=== PATIENT | male | born 1960 | race Caucasian/White ===

== ENCOUNTER 2019-06-04 18:27 | Inpatient (IN) | payer MEDICARE, MEDICAID, SELFPAY | END 2019-06-13 13:33 | disposition home or self-care (01) | DRG 641 | PROVIDERS: Admitting Provider Internal Medicine; Visit Provider Internal Medicine | DX: E83.52 Hypercalcemia (principal); C79.51 Secondary malignant neoplasm of bone; C79.89 Secondary malignant neoplasm of other specified sites; E87.1 Hypo-osmolality and hyponatremia; C78.7 Secondary malignant neoplasm of liver and intrahepatic bile duct; E87.2 Acidosis; M84.68XA Pathological fracture in other disease, other site, initial encounter for fracture; G89.29 Other chronic pain; G47.33 Obstructive sleep apnea (adult) (pediatric); M06.9 Rheumatoid arthritis, unspecified; D64.9 Anemia, unspecified; I25.10 Atherosclerotic heart disease of native coronary artery without angina pectoris; E83.42 Hypomagnesemia; Z79.899 Other long term (current) drug therapy; Z87.891 Personal history of nicotine dependence; E87.6 Hypokalemia; N18.2 Chronic kidney disease, stage 2 (mild) ==

== ENCOUNTER → 2019-06-18 | Outpatient (CLI) | payer SELFPAY | PROVIDERS: Referring Provider Internal Medicine Critical Care Medicine; Visit Provider Internal Medicine Hematology & Oncology | DX: C34.11 Malignant neoplasm of upper lobe, right bronchus or lung (principal); C79.51 Secondary malignant neoplasm of bone; C78.7 Secondary malignant neoplasm of liver and intrahepatic bile duct; F17.210 Nicotine dependence, cigarettes, uncomplicated; Z86.39 Personal history of other endocrine, nutritional and metabolic disease | CPT/HCPCS: 99203 ==

== ENCOUNTER 2019-06-20 19:04 | Inpatient (IN) | payer MEDICARE, MEDICAID, SELFPAY ==
[2019-06-20 19:32] VITALS: BP 146/76; PULSE 95; RESP 16; TEMP 36.8; O2SAT 96; BMI 23.5
[2019-06-20 21:00] LABS: Basophils % 0.2 %; Eosinophils % 0.1 %; Hematocrit 40.3 % (42.0-52.0); Hemoglobin 13.6 g/dL (11.7-16.6); Lymphocytes # 1.6 10^3/uL (0.8-4.8); Lymphocytes % 11.1 %; Mean Corpuscular HGB Conc 33.7 g/dL (30.0-36.0); Mean Corpuscular Hemoglobin 32.5 pg (28.0-34.0); Mean Corpuscular Volume 96.4 fL (80-94); Mean Platelet Volume 10.6 fL (7.4-10.4); Monocytes % 7.1 %; Neutrophils # 11.4 10^3/uL (1.8-7.7); Neutrophils % 81.2 %; Nucleated Red Blood Cells % 0 %; Platelet Count 352 10^3/cmm (130-400); Red Blood Count 4.18 10^6/uL (4.1-5.3); Red Cell Distribution Width 15.1 % (12.1-15.1)
[2019-06-20 21:10] LABS: Add RBC Morph No
[2019-06-20 21:11] LABS: Alanine Aminotransferase 75 U/L (0-41); Albumin Level 3.9 g/dL (3.5-5.2); Alkaline Phosphatase 221 IU/L (40-130); Anion Gap 27.8 (5-19); Aspartate Amino Transferase 112 U/L (0-40); Blood Urea Nitrogen 18 mg/dL (6-20); Carbon Dioxide 20 mmol/L (22-29); Chloride 89 mmol/L (98-107); Globulin 5.5 g/dL (1.3-4.6); Glomerular Filtration Rate 139.4 mL/min (90-130); Glucose 88 mg/dL (74-109); Potassium 4.8 mmol/L (3.5-5.1); Sodium 132 mmol/L (136-145); Total Bilirubin 1.4 mg/dL (0.15-1.2); Total Protein 9.4 g/dL (6.6-8.7)
[2019-06-20 21:26] LABS: Calcium 14.6 mg/Dl (8.6-10.0)
--- NOTE | 2019-06-20 21:27 | XR_ITS ---
WS: [id number] CHEST XRAY TECHNIQUE: Portable chest. CLINICAL INFORMATION: admission COMPARISON: FINDINGS: Heart: Normal cardiac silhouette. Aortic calcification. Lungs: Chronic emphysematous changes. 3.7 x 5.2 cm right hilar mass suspicious for neoplasm. No new pulmonary infiltrates. 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 Suspected bony metastasis better seen on the recent CT. XR/XR chest 1V portable [id number] IMPRESSION: 1. Stable large right hilar mass measuring 5.2 cm most consistent with neoplas m. 2. No new pulmonary infiltrates.
--- NOTE | 2019-06-20 21:39 | ED_ITS ---
Entered by Lala Plascencia, acting as scribe for Jun 20, 2019 19:04 HPI - General Adult General: Chief complaint: General Medical Stated complaint: WEAK Time Seen by Provider: 06/20/19 21:36 Source: patient Mode of arrival: wheelchair Limitations: no limitations History of Present Illness: HPI narrative: 58 yo m came to the er with daighter with weakness. Pts daughter stated that he wants to be placed in the prison for hospice care. Pt has stage 4 carsanoma. complaint: Weak and wants to be placed in prison Onset (ago): day(s) Quality: aching Pain Consistency: constant Relieving factors: none Associated symptoms: Deny chest pain, dyspnea or rash Review of Systems General: Reports: 10 or more systems reviewed and unremarkable except in HPI and below Const: Denies: fever Eyes: Denies: change in vision ENMT: Denies: throat pain Card: Denies: chest pain Resp: Denies: shortness of breath GI: Denies: abdominal pain : Denies: flank pain Musc: Denies: neck pain Skin/Breast: Denies: rash Neuro: Reports: weakness in extremities Psych: Denies: anxiety Endo: Denies: excessive urination Gil/Lymph: Denies: easy bruising All/Imm: Denies: hives PFSH ED PFSH: Statuses (acute, chronic, etc) shown below reflect problem list status as previously entered and may not be historically accurate Medical History (Updated 06/21/19 @ 02:34 by Andrea Gustafson MD) Bone metastases (Acute) Fibrous dysplasia (monostotic), left forearm (Acute) Fracture of left foot (Acute) Hypercalcemia of malignancy (Acute) IV drug abuse (Acute) Skin graft disorder (Acute) Surgical History (Updated 06/21/19 @ 00:00 by Jannet Hollingsworth MD) H/O shoulder surgery (Acute) History of dental surgery (Acute) Family History (Updated 06/21/19 @ 00:00 by Jannet Hollingsworth MD) Denies family history of CAD (coronary artery disease) Bleeding disorder Cancer Social History Smoking and tobacco status: current every day smoker Quit status (tobacco): has quit using tobacco Year quit tobacco: 2019 Alcohol intake: former Current gender identity: Male Physical Exam Const: COMMON NORMALS: oriented x3 GENERAL APPEARANCE: disheveled and ill appearing HENMT: COMMON NORMALS: normocephalic and external nose normal HEAD & SCALP: normocephalic NOSE: external nose normal Eye: COMMON NORMALS: PERRL PUPIL: Yes PERRL Neck/C-Spine: COMMON NORMALS: full ROM and no lymphadenopathy Chest: COMMONS NORMALS: inspection of chest normal Resp: COMMON NORMALS: normal respiratory effort, no use of accessory muscles and clear to auscultation bilaterally AUSCULTATION: clear to auscultation bilaterally Cardio: COMMON NORMALS: regular rate and regular rhythm RATE: regular rate RHYTHM: regular rhythm GI: COMMON NORMALS: normal to inspection, nondistended, normoactive bowel sounds, soft to palpation, non-tender and no masses PALPATION: Yes soft Back/Pelvis: THORACIC SPINE/UPPER BACK: Yes normal to inspection Extremity: COMMON NORMALS: normal to inspection, full ROM and normal capillary refill Neuro: COMMON NORMALS: oriented x3 Psych: COMMON NORMALS: mental status grossly normal and cooperative Skin: COMMON NORMALS: no rashes or lesions noted GENERAL SKIN EXAM: no rashes or lesions noted Course Vital Signs: Vital signs: Vital Signs Temperature 97.9 F 06/21/19 02:14 Pulse Rate 103 H 06/21/19 02:14 Respiratory Rate 18 06/21/19 02:14 Blood Pressure 143/83 06/21/19 02:14 Pulse Oximetry 94 06/21/19 02:14 MDM - General Adult MDM Narrative: Medical decision making narrative: Patient presents here with generalized weakness would like to be placed in a prison on palliative care. Patient is no longer able to take care of himself. I spoke to hospitalist and will admit at this time. Lab Data: Labs: Lab Results 06/20/19 06/20/19 06/20/19 Range/Units 20:44 20:44 20:53 WBC 14.0 H (4.0-10.0) 10^3/ uL RBC 4.18 (4.1-5.3) 10^6/u L Hgb 13.6 (11.7-16.6) g/dL Hct 40.3 L (42.0-52.0) % MCV 96.4 H (80-94) fL MCH 32.5 (28.0-34.0) pg MCHC 33.7 (30.0-36.0) g/dL RDW 15.1 (12.1-15.1) % Plt Count 352 (130-400) 10^3/c mm MPV 10.6 H (7.4-10.4) fL Neut % (Auto) 81.2 % Lymph % (Auto) 11.1 % [place] % (Auto) 7.1 % Eos % (Auto) 0.1 % Baso % (Auto) 0.2 % Neut # (Auto) 11.4 H (1.8-7.7) 10^3/u L Lymph # (Auto) 1.6 (0.8-4.8) 10^3/u L [place] # (Auto) 1.0 H (0.2-0.9) 10^3/u L Eos # (Auto) 0.0 (0.0-0.8) 10^3/u L Baso # (Auto) 0.0 (0.0-0.1) 10^3/u L Nucleated RBC % (a uto) 0 % Nucleated RBCs # 0.0 /100WBC Sodium 132 L (136-145) mmol/L Potassium 4.8 (3.5-5.1) mmol/L Chloride 89 L (98-107) mmol/L Carbon Dioxide 20 L (22-29) mmol/L Anion Gap 27.8 H (5-19) BUN 18 (6-20) mg/dL Creatinine 0.6 L (0.7-1.2) mg/dL GFR Calculation 139.4 H (90-130) mL/min Glucose 88 (74-109) mg/dL Calcium 14.6 H* (8.6-10.0) mg/Dl Total Bilirubin 1.4 H (0.15-1.2) mg/dL AST 112 H (0-40) U/L ALT 75 H (0-41) U/L Alkaline Phosphata se 221 H (40-130) IU/L Total Protein 9.4 H (6.6-8.7) g/dL Albumin 3.9 (3.5-5.2) g/dL Globulin 5.5 H (1.3-4.6) g/dL Urine Color Yellow (Yellow) Urine Appearance Clear (CLEAR) Urine pH 5 (5-7) Ur Specific Gravit y 1.025 (1.005-1.030) Urine Protein Trace (Negative) Urine Glucose (UA) Norm (Normal) Urine Ketones 2+ H (Negative) Urine Occult Blood Neg (Negative) Urine Nitrate Negative (Negative) Urine Bilirubin Neg (Negative) Urine Urobilinogen 1 H (Negative) mg/dL Ur Leukocyte Jessie ase Negative (Negative) Urine RBC 0-4 H (0-2) /hpf Urine WBC None (0-5) /hpf Ur Squamous Epith Cells 0-4 H (0-5) Urine Bacteria Trace (NONE) Hyaline Casts 5-10 H Fine Granular Cast s 0-4 H /lpf Discharge Plan Discharge Patient Disposition: Admitted As Inpatient Admit Provider: Jannet Hollingsworth Clinical Impression: Weakness Squamous cell lung cancer Qualifiers: Laterality: unspecified laterality Qualified Code(s): C34.90 - Malignant neoplasm of unspecified part of unspecified bronchus or lung Condition: Stable Referrals: Tressa Astorga DO [Primary Care Provider] - Interventions: ED Discharge Assessment Last Done: 06/21/19 02:14 Discharge Date/Time: 06/21/19 02:17 Coding Level of Care Code ED Ssis Architect for Chg Fwd The documentation recorded by the Temo lewis Stephanie Lyn, accurately reflects the service I personally performed and the decisions made by Sj maria Korby, MD Jun 20, 2019 19:04
[2019-06-20 21:45] LABS: Bilirubin Urine Neg (Negative); Blood Urine Neg (Negative); Glucose Urine UA Norm (Normal); Ketones Urine 2+ (Negative); Leukocyte Esterase Urine Negative (Negative); Nitrate Urine Negative (Negative); Protein Urine Trace (Negative); Specific Gravity, Urine 1.025 (1.005-1.030); Urine Appearance Clear (CLEAR); Urine Color Yellow (Yellow); Urobilinogen Urine 1 mg/dL (Negative); pH Urine 5 (5-7)
[2019-06-20] MEDS: ondansetron 2 mg/ML SDV 2 mL 4 MG IVP (21:45)
[2019-06-20] MEDS: fentaNYL 50 mcg/mL INJ 2mL 100 MCG IVP (21:45)
[2019-06-20 21:46] LABS: Add Urine Microscopic? YES
[2019-06-20 22:19] VITALS: BP 149/79; PULSE 89; RESP 16; O2SAT 95
[2019-06-20 22:52] LABS: Fine Granular Casts Urine 0-4 /lpf
[2019-06-20 22:54] LABS: Add Urine Culture? No; Bacteria Urine TRACE; RBC Urine 0-4 /hpf (0-2); Squamous Epithelial Cell Urine 0-4 (0-5)
[2019-06-20 22:56] VITALS: RESP 20; O2SAT 94
[2019-06-20] MEDS: HYDROmorphone 1 mg/mL INJ 1 mL IVP (22:56)
--- NOTE | 2019-06-20 23:11 | PC.NURSE ---
Patient would like a pain shot. pain rating 7/10
--- NOTE | 2019-06-20 23:40 | PC.NURSE ---
CHARTED ON WRONG PT, CHARTED VITAL SIGNS AND DISCHARGE ON THIS PT IN ERROR. PT CONTINUES TO BE IN ER 3 AT THIS TIME.
--- NOTE | 2019-06-20 23:51 | P.HP_ITS ---
Providers/Chief Complaint Primary Care Provider: Tressa Astorga Chief Complaint: WEAK History of Present Illness Tapan Gonzalez is a 58 year old male who was admitted for management of hypercalcemia secondary to malignancy 1 week back, he saw psychiatrist and Dr. Hammer, he had decision-making capacity, Dr. 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 He was recently seen in ER few days back because he was in pain and he missed his PCP appointment and he did not have enough opioid coverage for his pain. Today patient presented because he is very dehydrated, and is agreeable to go to a long-term acute care because of his comorbid conditions. He has not received any chemo or radiotherapy, he has not followed up with any physicians since his discharge. Diagnostics in ER showed hypertension, afebrile, hypercalcemia Review of Systems Narrative: Patient looks extremely dehydrated, cachectic appearance Endorsing pain in his ribs and headache No pain in his eyes No throat pain No chest pain No shortness of breath Mild abdominal pain, denies constipation, last bowel movement was today Lower extremity pain with some tingling Depressed sad mood Denies fever, chills, hot flashes He is endorsing weight loss Not able to take care of himself anymore Medications/Allergies Allergies Allergy/AdvReac Type Severity Reaction Status Date / Time No Known Allergies Allergy Unverified 06/18/19 12:38 PFSH Acute PFSH: Statuses (acute, chronic, etc) shown below reflect problem list status as previously entered and may not be historically accurate Medical History (Updated 06/21/19 @ 00:00 by Jannet Hollingsworth MD) Bone metastases (Acute) Fibrous dysplasia (monostotic), left forearm (Acute) Fracture of left foot (Acute) Hypercalcemia of malignancy (Acute) IV drug abuse (Acute) Skin graft disorder (Acute) Surgical History (Updated 06/21/19 @ 00:00 by Jannet Hollingsworth MD) H/O shoulder surgery (Acute) History of dental surgery (Acute) Family History (Updated 06/21/19 @ 00:00 by Jannet Hollingsworth MD) Denies family history of CAD (coronary artery disease) Bleeding disorder Cancer Social History Smoking and tobacco status: current every day smoker Quit status (tobacco): has quit using tobacco Year quit tobacco: 2019 Alcohol intake: former Current gender identity: Male Vitals/I&O/Wt Last Vital Signs Temp 98.2 F 06/20/19 19:32 Pulse 89 06/20/19 22:19 Resp 20 H 06/20/19 22:56 BP 149/79 06/20/19 22:19 Pulse Ox 94 06/20/19 22:56 Weight last 48 hrs Weight 68.039 kg Physical Exam 2 Narrative: EXAM NARRATIVE: Cachectic appearance lethargic male Patient is awake alert oriented x3 GCS 15, his mentation is fluctuant though with some nonpurposeful movements as well Abdomen soft, nontender bowel sounds present S1-S2 no murmur appreciated Lungs are clear to auscultation with decreased airflow no adventitious sounds He has pain around his rib cage, pleuritic chest pain positive No ischemic or gangrenous extremities He has skin grafts which does not look infected Lethargic depressed mood, no active suicidal or homicidal ideation Bone pain, rib pain, back pain positive A&P Assessment and plan (1) Stage IV squamous cell carcinoma of lung: Status: Acute Code(s): C34.90 - Malignant neoplasm of unspecified part of unspecified bronchus or lung (2) Hypercalcemia of malignancy: Status: Acute Code(s): E83.52 - Hypercalcemia (3) IV drug abuse: Status: Acute Code(s): F19.10 - Other psychoactive substance abuse, uncomplicated (4) Bone metastases: Status: Acute Code(s): C79.51 - Secondary malignant neoplasm of bone (5) Squamous cell lung cancer: Status: Acute Code(s): C34.90 - Malignant neoplasm of unspecified part of unspecified bronchus or lung Stage IV lung cancer with metastases involving his skull and ribs Dr. Hammer recommended palliative chemoradiotherapy which patient has not been able to follow-up for his appointment, he has not even set up appointment with PCP which was set up last time He was living with his cousin Stevenson, he is not able to take care of him because he is getting weaker Patient is in agreement to go to long-term acute care still refusing palliative/hospice care Hypercalcemia of malignancy: I will start him on normal saline IV fluids last time he responded very well to fluid resuscitation Bone metastases: Patient is getting opioids, he is not constipated, I believe he has high tolerance because of polysubstance abuse history Patient has capacity to make decision, DNR/DNI Attestations Medical Necessity Statement*: Anticipating his discharge in less than 48 hours to long-term acute care, he would be a good candidate for palliative approach because of his stage IV cancer Time Spent in Patient Care: Greater than 35 minutes 45 Coding Level of Care Code Acute Prestidigitator for Stephanie Gastelum Diagnoses Stage IV squamous cell carcinoma of lung C34.90 Hypercalcemia of malignancy E83.52 IV drug abuse F19.10 Bone metastases C79.51 Squamous cell lung cancer C34.90
[2019-06-21] VITALS (8 sets, daily range): BP systolic 113–156; BP diastolic 52–83; PULSE 64–103; RESP 16–24; TEMP 36.3–37.2; O2SAT 94–96
[2019-06-21] MEDS: sodium chloride 0.9% 1,000 ML 999 ML IV (01:21)
[2019-06-21] MEDS: sodium chloride 0.9% 1,000 ML 100 ML IV ×2 (01:22→13:25)
[2019-06-21] MEDS: morphine 4 mg/mL SDV 1 mL IVP (01:22)
[2019-06-21] MEDS: cephALEXin 500 mg Capsule PO (01:55)
[2019-06-21] MEDS: enoxaparin 40 mg/0.4 mL Syringe SUBCUT (03:15)
[2019-06-21 06:05] LABS: Anion Gap 26.5 (5-19); Blood Urea Nitrogen 19 mg/dL (6-20); Calcium 13.3 mg/Dl (8.6-10.0); Carbon Dioxide 20 mmol/L (22-29); Chloride 91 mmol/L (98-107); Glomerular Filtration Rate 139.4 mL/min (90-130); Glucose 90 mg/dL (74-109); Potassium 4.5 mmol/L (3.5-5.1); Sodium 133 mmol/L (136-145)
[2019-06-21] MEDS: morphine ER (12 HR) 15 mg Tablet PO ×2 (08:29→17:34)
--- NOTE | 2019-06-21 17:01 | P.PN_ITS ---
Subjective Subjective: Interval history: He is very weak. Reports pain in his chest and back. Denies pain elsewhere. Denies shortness of breath. Reports he has been this weak for about 4 days. Denies constipation. Daughter is visiting with him at bedside. Vitals/I&O/Wt Last Vital Signs Temp 99.0 F 06/21/19 15:14 Pulse 93 06/21/19 15:14 Resp 18 06/21/19 15:14 BP 123/66 06/21/19 15:14 Pulse Ox 94 06/21/19 15:14 06/21/19 06/21/19 06/21/19 06:59 14:59 22:59 Intake Total 1663.333 / 2526.688 4502.667 / 1176.667 Output Total 700 / 700 Balance 1663.333 / 1663.333 476.667 / 476.667 Weight last 48 hrs Weight 65.363 kg Weight 66.043 kg Weight 68.039 kg Physical Exam Const: COMMON NORMALS: no apparent distress and oriented x3 GENERAL APPEARANCE: lethargic and limp (Generally very weak.) ORIENTATION/CONSCIOUSNESS: Yes lethargic HENMT: COMMON NORMALS: oropharynx normal Neck/C-Spine: COMMON NORMALS: no JVD Resp: COMMON NORMALS: normal respiratory effort and clear to auscultation bilaterally AUSCULTATION: clear to auscultation bilaterally Cardio: COMMON NORMALS: no JVD, regular rhythm, S1 normal heart sound, S2 normal heart sound and no murmurs RHYTHM: regular rhythm HEART SOUNDS: S1 normal and S2 normal GI: COMMON NORMALS: normal to inspection, nondistended, normoactive bowel soun ds, soft to palpation and non-tender PALPATION: Yes soft Extremity: COMMON NORMALS: no joint enlargement and no pedal edema Neuro: COMMON NORMALS: oriented x3 and moves all extremities SENSORIUM/ORIENTATION: Yes lethargic Skin: COMMON NORMALS: no rashes or lesions noted GENERAL SKIN EXAM: no rashes or lesions noted A&P Assessment and plan (1) Hypercalcemia of malignancy: Calcium 13.3, albumin 3.9. This is after IV hydration. He appears to be symptomatic with generalized weakness, perhaps mildly altered mentation. Denies abdominal pain, constipation. Has been having bone pain, although this may be secondary to bone metastasis as well. At this time we will continue IV hydration, will start him on calcitonin, will give him a dose of pamidronate. Reassess calcium. Status: Acute Code(s): E83.52 - Hypercalcemia (2) Stage IV squamous cell carcinoma of lung: We have had a long discussion with his daughter at bedside and another daughter who called in on speaker phone. Patient has been present, and intermittently awake, although overall rather weak to participate. We discussed regarding his current cancer stage. It appears stated not have a good understanding with regards to the goals of palliative radiation therapy. Discussed with them that most likely this appears has been done to relieve his symptoms of pain from the bony metastases. Discussed with him that appears his functional capacity has not allowed conventional chemotherapy. We discussed that molecular marker is being currently assessed by his cancer doctor to determine her candidacy for immunotherapy. Cleared up for them that this would not be a curative treatment. We discussed that this potentially could slow down his disease, perhaps leading to some response/reversal, although the extent is difficult to say. I referred them to consult with his oncologist regarding further questions as to the potential benefits and adverse effects of immunotherapy. Given his overall deconditioning we will try to get him placed to SNF for rehabilitation and additional care. Status: Acute Code(s): C34.90 - Malignant neoplasm of unspecified part of unspecified bronchus or lung (3) Bone metastases: With hypercalcemia. Would benefit from continuation of bisphosphonate after discharge. Status: Acute Code(s): C79.51 - Secondary malignant neoplasm of bone (4) Squamous cell lung cancer: Status: Acute Qualifiers: Laterality: unspecified laterality Qualified Code(s): C34.90 - Malignant neoplasm of unspecified part of unspecified bronchus or lung Code(s): C34.90 - Malignant neoplasm of unspecified part of unspecified bronchus or lung (5) IV drug abuse: History of substance abuse. Status: Acute Code(s): F19.10 - Other psychoactive substance abuse, uncomplicated Attestations Medical Necessity Statement*: Requiring admission of over 2 midnights for assessment management of severe hypercalcemia associated with malignancy and metastatic disease. Coding Level of Care Code Acute Polisher And Sander for [facility] Fwd Diagnoses Hypercalcemia of malignancy E83.52 Stage IV squamous cell carcinoma of lung C34.90 Bone metastases C79.51 Squamous cell lung cancer C34.90 Laterality: unspecified laterality IV drug abuse F19.10 Meds Home Medications and Allergies Home Medications Medication Instructions Recorded Confirmed Type No Known Home Medications 06/18/19 06/20/19 History Allergies Allergy/AdvReac Type Severity Reaction Status Date / Time No Known Allergies Allergy Verified 06/21/19 02:59 Current Medications Current Medications Generic Name Dose Route Start Last Admin Trade Name Freq PRN Reason Stop Dose Admin Enoxaparin Sodium 40 mg 06/21/19 02:00 06/21/19 03:15 Lovenox SUBCUT 40 mg Q24H ELIZABETH Administration Sodium Chloride 1,000 mls @ 100 mls/hr 06/21/19 00:45 06/21/19 13:25 Sodium Chloride 0.9% IV 100 mls/hr .Q10H ELIZABETH Administration Morphine Sulfate 15 mg 06/21/19 09:00 06/21/19 08:29 Ms Contin PO 15 mg BID ELIZABETH Administration Senna/Docusate Sodium 1 tab 06/21/19 09:00 06/21/19 08:30 Senna-S PO Not Given BID ELIZABETH
[2019-06-21] MEDS: calcitonin,salmon 200 unit/mL SDV 2mL 250 UNIT SUBCUT (17:42)
--- NOTE | 2019-06-21 20:38 | NUR.SHIFT ---
Shift Assessment done by Candida ROLAND was reviewed by this RN
[2019-06-22] VITALS (10 sets, daily range): BP systolic 114–128; BP diastolic 62–74; PULSE 86–101; RESP 16–24; TEMP 36.3–37.1; O2SAT 93–95
[2019-06-22] MEDS: sodium chloride 0.9% 1,000 ML 100 ML IV ×2 (00:35→16:38)
[2019-06-22] MEDS: enoxaparin 40 mg/0.4 mL Syringe SUBCUT (01:32)
[2019-06-22] MEDS: morphine IR 15 mg Tablet 30 MG PO ×3 (01:44→22:35)
[2019-06-22 05:48] LABS: Alanine Aminotransferase 56 U/L (0-41); Albumin Level 3.4 g/dL (3.5-5.2); Alkaline Phosphatase 171 IU/L (40-130); Anion Gap 23.3 (5-19); Blood Urea Nitrogen 10 mg/dL (6-20); Calcium 11.7 mg/Dl (8.6-10.0); Carbon Dioxide 16 mmol/L (22-29); Chloride 98 mmol/L (98-107); Globulin 3.7 g/dL (1.3-4.6); Glomerular Filtration Rate 139.4 mL/min (90-130); Glucose 86 mg/dL (74-109); Potassium 4.3 mmol/L (3.5-5.1); Sodium 133 mmol/L (136-145); Total Bilirubin 0.7 mg/dL (0.15-1.2); Total Protein 7.1 g/dL (6.6-8.7)
[2019-06-22] MEDS: calcitonin,salmon 200 unit/mL SDV 2mL 250 UNIT SUBCUT ×2 (05:48→19:27)
[2019-06-22 06:28] LABS: Aspartate Amino Transferase 81 U/L (0-40)
[2019-06-22 07:33] LABS: Basophils % 0.1 %; Hemoglobin 11.7 g/dL (11.7-16.6); Lymphocytes # 1.7 10^3/uL (0.8-4.8); Lymphocytes % 18.9 %; Mean Corpuscular HGB Conc 31.6 g/dL (30.0-36.0); Mean Corpuscular Hemoglobin 32.2 pg (28.0-34.0); Mean Corpuscular Volume 101.9 fL (80-94); Mean Platelet Volume 10.6 fL (7.4-10.4); Monocytes # 0.8 10^3/uL (0.2-0.9); Monocytes % 8.5 %; Neutrophils # 6.4 10^3/uL (1.8-7.7); Neutrophils % 72.1 %; Nucleated Red Blood Cells % 0 %; Platelet Count 285 10^3/cmm (130-400); Red Blood Count 3.63 10^6/uL (4.1-5.3); Red Cell Distribution Width 15.5 % (12.1-15.1); White Blood Count 8.9 10^3/uL (4.0-10.0)
[2019-06-22] MEDS: morphine ER (12 HR) 15 mg Tablet PO ×2 (09:22→19:13)
--- NOTE | 2019-06-22 12:51 | PC.CHAP ---
Pastoral Care Encounter/Spiritual Assessment Type of Contact [] Declined medicaid eligibility specialist visit [] Patient/Family/Request visit [] Outpatient visit [] Follow-up visit [] Physician referral [] Code/Alert [] Routine visit [] Staff referral [] Actively dying [] Patient sleeping [] Family support [] [] Out of room [] Palliative care [] [] Receiving care in room [] Pre-surgical visit [] Trauma [] Long length of stay [] ICU visit [] Other: Relational/Emotional Strength [x] Patient feels connected with others/family/visitors/staff [] Distress [] Loneliness/isolation [] Abandonment Spirituality of Patient [] Person of [place] [] Attends Hindu of their [place] [] Believes in Prayer [] Reads Bible or Yarsanism materials [] There are Spiritual issues to be addressed Wreath Maker Interventions [] Prayer [] Active listening [] Non-anxious presence [] Spiritual/emotional support [] Crisis/trauma care [] Spiritual counseling [] Bereavement support [] Provided bereavement packet [] Provided Bible/devotional materials [] Provided toy/stuffed animal, coloring book to patient or family member [] Completed spiritual assessment [] Provided Communion [] Anointing/[place] [] Salvation [] Other: Impact on Illness or Injury [] Angry [] Fearful [] Anxious [] Often cries [] Exhaustion [] Unable to work [] Unable to attend sikh [] Unable to walk/stand [] Unable to read [] Unable to drive [] Unable to eat/drink [] Unable to sleep [] Unable to be with family [] Other: Summary Patient declined visit; Reny Sanchez Time spent with patient 2-Minutes
--- NOTE | 2019-06-22 13:12 | PC.PT ---
PT note; patient demonstrated safely independent with transfers and ambulation with use of front wheel walker, during PT evaluation, no further visits planned at this time, no PT treatment indicated.
--- NOTE | 2019-06-22 18:57 | PM.PN ---
Subjective Subjective: Interval history: Today he reports he is feeling somewhat better. Currently denies significant pain or discomfort. Vitals/I&O/Wt Last Vital Signs Temp 98.1 F 06/22/19 16:00 Pulse 86 06/22/19 16:00 Resp 18 06/22/19 16:00 BP 123/65 06/22/19 16:00 Pulse Ox 95 06/22/19 16:00 06/22/19 06/22/19 06/22/19 06:59 14:59 22:59 Intake Total 1000 / 2616.667 2080 / 2080 600 / 2680 Output Total 825 / 2475 700 / 700 Balance 175 / 035.967 6110 / 1380 600 / 1980 Weight last 48 hrs Weight 66.043 kg Weight 65.363 kg Weight 66.043 kg Weight 68.039 kg Physical Exam Const: COMMON NORMALS: no apparent distress and oriented x3 GENERAL APPEARANCE: lethargic (Somewhat more awake today, appears slightly stronger) and limp (Generally very weak.) ORIENTATION/CONSCIOUSNESS: Yes lethargic (Somewhat more awake today, appears slightly stronger) HENMT: COMMON NORMALS: oropharynx normal Neck/C-Spine: COMMON NORMALS: no JVD Resp: COMMON NORMALS: normal respiratory effort and clear to auscultation bilaterally AUSCULTATION: clear to auscultation bilaterally Cardio: COMMON NORMALS: no JVD, regular rhythm, S1 normal heart sound, S2 normal heart sound and no murmurs RHYTHM: regular rhythm HEART SOUNDS: S1 normal and S2 normal GI: COMMON NORMALS: normal to inspection, nondistended, normoactive bowel sounds, soft to palpation and non-tender PALPATION: Yes soft Extremity: COMMON NORMALS: no joint enlargement and no pedal edema Neuro: COMMON NORMALS: oriented x3 and moves all extremities SENSORIUM/ORIENTATION: Yes lethargic (Somewhat more awake today, appears slightly stronger) Skin: COMMON NORMALS: no rashes or lesions noted GENERAL SKIN EXAM: no rashes or lesions noted A&P Assessment and plan (1) Hypercalcemia of malignancy: Calcium improving. He is mildly more awake, mildly stronger today. Continue IV hydration. Calcitonin. Received pamidronate. Status: Acute Code(s): E83.52 - Hypercalcemia (2) Stage IV squamous cell carcinoma of lung: Discussed again with the patient and his daughter at bedside. He is given things a good amount of thought, and has decided that he would like to try to hang on if possible. He states that he would like to think about things further, although preliminarily would be willing to try immunotherapy if it were to give him some more time. Pending molecular studies. This will need to be arranged by oncology. With generalized deconditioning, pending placement to SNF for rehabilitation. Status: Acute Code(s): C34.90 - Malignant neoplasm of unspecified part of unspecified bronchus or lung (3) Bone metastases: With hypercalcemia. Would benefit from continuation of bisphosphonate after discharge. Status: Acute Code(s): C79.51 - Secondary malignant neoplasm of bone (4) Squamous cell lung cancer: Status: Acute Qualifiers: Laterality: unspecified laterality Qualified Code(s): C34.90 - Malignant neoplasm of unspecified part of unspecified bronchus or lung Code(s): C34.90 - Malignant neoplasm of unspecified part of unspecified bronchus or lung (5) IV drug abuse: History of substance abuse. Reports has had no substance abuse in the last 5 to 6 years. Status: Acute Code(s): F19.10 - Other psychoactive substance abuse, uncomplicated Attestations Medical Necessity Statement*: Continue admission for assessment management of severe symptomatic hypercalcemia secondary to malignancy. Disposition planning. Coding Level of Care Code Acute Tele Marketing Executive for Stephanie Gastelum Diagnoses Hypercalcemia of malignancy E83.52 Stage IV squamous cell carcinoma of lung C34.90 Bone metastases C79.51 Squamous cell lung cancer C34.90 Laterality: unspecified laterality IV drug abuse F19.10
[2019-06-23] MEDS: enoxaparin 40 mg/0.4 mL Syringe SUBCUT (01:37)
[2019-06-23] MEDS: sodium chloride 0.9% 1,000 ML 100 ML IV ×2 (02:49→15:04)
[2019-06-23 04:00] VITALS: BP 127/70; PULSE 94; RESP 20; TEMP 37.1; O2SAT 94
[2019-06-23 05:53] LABS: Basophils % 0.1 %; Hematocrit 35.4 % (42.0-52.0); Hemoglobin 11.7 g/dL (11.7-16.6); Lymphocytes # 1.3 10^3/uL (0.8-4.8); Lymphocytes % 19.1 %; Mean Corpuscular HGB Conc 33.1 g/dL (30.0-36.0); Mean Corpuscular Hemoglobin 32.2 pg (28.0-34.0); Mean Corpuscular Volume 97.5 fL (80-94); Mean Platelet Volume 10.6 fL (7.4-10.4); Monocytes # 0.5 10^3/uL (0.2-0.9); Monocytes % 7.5 %; Neutrophils # 4.9 10^3/uL (1.8-7.7); Neutrophils % 72.9 %; Nucleated Red Blood Cells % 0 %; Platelet Count 268 10^3/cmm (130-400); Red Blood Count 3.63 10^6/uL (4.1-5.3); Red Cell Distribution Width 14.9 % (12.1-15.1); White Blood Count 6.7 10^3/uL (4.0-10.0)
[2019-06-23 06:20] LABS: Alanine Aminotransferase 50 U/L (0-41); Albumin Level 3.7 g/dL (3.5-5.2); Alkaline Phosphatase 158 IU/L (40-130); Aspartate Amino Transferase 70 U/L (0-40); Blood Urea Nitrogen 10 mg/dL (6-20); Calcium 11.3 mg/Dl (8.6-10.0); Carbon Dioxide 20 mmol/L (22-29); Chloride 93 mmol/L (98-107); Globulin 3.4 g/dL (1.3-4.6); Glomerular Filtration Rate 222.5 mL/min (90-130); Glucose 72 mg/dL (74-109); Sodium 131 mmol/L (136-145); Total Bilirubin 0.8 mg/dL (0.15-1.2); Total Protein 7.1 g/dL (6.6-8.7)
[2019-06-23] MEDS: calcitonin,salmon 200 unit/mL SDV 2mL 250 UNIT SUBCUT ×2 (06:30→17:11)
[2019-06-23 07:49] VITALS: BP 121/67; PULSE 94; RESP 16; TEMP 37.1; O2SAT 93
[2019-06-23] MEDS: sennosides-docusate Tablet 1 TAB PO (08:33)
[2019-06-23] MEDS: morphine ER (12 HR) 15 mg Tablet PO ×2 (08:37→17:04)
[2019-06-23 11:24] VITALS: BP 127/65; PULSE 88; RESP 16; TEMP 36.4; O2SAT 95
--- NOTE | 2019-06-23 14:15 | P.PN_ITS ---
Subjective Subjective: Interval history: Overall feeling somewhat better. Today denies any changes, but does complain of pain in the left lower chest. This is worse with movement, palpation or deep inspiration. He is feeling hungry and looking forward to his lunch. Vitals/I&O/Wt Last Vital Signs Temp 97.5 F L 06/23/19 11:24 Pulse 88 06/23/19 11:24 Resp 16 06/23/19 11:24 BP 127/65 06/23/19 11:24 Pulse Ox 95 06/23/19 11:24 06/22/19 06/23/19 06/23/19 22:59 06:59 14:59 Intake Total 1003.333 / 3083.333 846.667 / 3930.000 120 / 120 Output Total 525 / 1225 450 / 1675 200 / 200 Balance 478.333 / 1858.333 396.667 / 2255.000 -80 / -80 Weight last 48 hrs Weight 66.043 kg Physical Exam Const: COMMON NORMALS: no apparent distress and oriented x3 GENERAL APPEARANCE: frail appearing and limp (Generally very weak.) HENMT: COMMON NORMALS: oropharynx normal Neck/C-Spine: COMMON NORMALS: no JVD Resp: COMMON NORMALS: normal respiratory effort and clear to auscultation bilaterally AUSCULTATION: clear to auscultation bilaterally Cardio: COMMON NORMALS: no JVD, regular rhythm, S1 normal heart sound, S2 normal heart sound and no murmurs RHYTHM: regular rhythm HEART SOUNDS: S1 normal and S2 normal GI: COMMON NORMALS: normal to inspection, nondistended, normoactive bowel sounds, soft to palpation and non-tender PALPATION: Yes soft Extremity: COMMON NORMALS: no joint enlargement and no pedal edema Neuro: COMMON NORMALS: oriented x3 and moves all extremities Skin: COMMON NORMALS: no rashes or lesions noted GENERAL SKIN EXAM: no rashes or lesions noted A&P Assessment and plan (1) Hypercalcemia of malignancy: Calcium with gradual improvement, today down to 11.3. He is mildly more awake, mildly stronger today. Continue IV hydration. Calcitonin. Received pamidronate. Status: Acute Code(s): E83.52 - Hypercalcemia (2) Stage IV squamous cell carcinoma of lung: Pending molecular studies. He will be discussing immunotherapy with his oncologist once results are available. This will need to be arranged by oncology. With left lower chest pain, worse with movement, inspiration and palpation. Will request for lidocaine patch. With generalized deconditioning, pending placement to SNF for rehabilitation. Status: Acute Code(s): C34.90 - Malignant neoplasm of unspecified part of unspecified bronchus or lung (3) Bone metastases: With hypercalcemia. Would benefit from continuation of bisphosphonate after discharge. Status: Acute Code(s): C79.51 - Secondary malignant neoplasm of bone (4) Squamous cell lung cancer: Status: Acute Qualifiers: Laterality: unspecified laterality Qualified Code(s): C34.90 - Malignant neoplasm of unspecified part of unspecified bronchus or lung Code(s): C34.90 - Malignant neoplasm of unspecified part of unspecified bronchus or lung (5) IV drug abuse: History of substance abuse. Reports has had no substance abuse in the last 5 to 6 years. Status: Acute Code(s): F19.10 - Other psychoactive substance abuse, uncomplicated Attestations Medical Necessity Statement*: Continue admission for assessment and management of hypercalcemia associated with malignancy, disposition arrangements. Coding Level of Care Code Acute Real Estate Operations Manager for [facility] Fwd Diagnoses Hypercalcemia of malignancy E83.52 Stage IV squamous cell carcinoma of lung C34.90 Bone metastases C79.51 Squamous cell lung cancer C34.90 Laterality: unspecified laterality IV drug abuse F19.10
[2019-06-23 15:45] VITALS: BP 109/63; PULSE 89; RESP 16; TEMP 36.6; O2SAT 96
[2019-06-23 19:43] VITALS: BP 124/65; PULSE 92; RESP 18; TEMP 36.9; O2SAT 94
[2019-06-23 20:04] LABS: Hepatitis A Antibody IgM. Non-Reactive (Nonreactive); Hepatitis B Core IgM Non-Reactive (Nonreactive); Hepatitis B Surface Antigen. Non-Reactive (Nonreactive); Hepatitis C Virus Antibody Reactive (Nonreactive)
[2019-06-23] MEDS: lidocaine 5% Patch 1 PATCH TOPICAL (21:24)
[2019-06-23 21:25] VITALS: RESP 20
[2019-06-23] MEDS: morphine IR 15 mg Tablet 30 MG PO (21:25)
[2019-06-24] VITALS (9 sets, daily range): BP systolic 109–132; BP diastolic 56–73; PULSE 79–99; RESP 17–22; TEMP 36.5–37.1; O2SAT 92–95
[2019-06-24] MEDS: enoxaparin 40 mg/0.4 mL Syringe SUBCUT (01:11)
[2019-06-24] MEDS: sodium chloride 0.9% 1,000 ML 100 ML IV ×2 (01:11→18:40)
[2019-06-24] MEDS: morphine IR 15 mg Tablet 30 MG PO ×2 (01:12→05:47)
[2019-06-24] MEDS: calcitonin,salmon 200 unit/mL SDV 2mL 250 UNIT SUBCUT ×2 (05:34→18:54)
[2019-06-24 05:49] LABS: Basophils % 0.1 %; Eosinophils % 0.1 %; Hematocrit 33.4 % (42.0-52.0); Hemoglobin 11.2 g/dL (11.7-16.6); Lymphocytes # 1.1 10^3/uL (0.8-4.8); Lymphocytes % 15.4 %; Mean Corpuscular HGB Conc 33.5 g/dL (30.0-36.0); Mean Corpuscular Hemoglobin 32.5 pg (28.0-34.0); Mean Corpuscular Volume 96.8 fL (80-94); Mean Platelet Volume 10.3 fL (7.4-10.4); Monocytes # 0.7 10^3/uL (0.2-0.9); Monocytes % 10.3 %; Neutrophils # 5.1 10^3/uL (1.8-7.7); Neutrophils % 73.7 %; Nucleated Red Blood Cells % 0 %; Platelet Count 257 10^3/cmm (130-400); Red Blood Count 3.45 10^6/uL (4.1-5.3); White Blood Count 6.9 10^3/uL (4.0-10.0)
[2019-06-24 06:04] LABS: Alanine Aminotransferase 46 U/L (0-41); Albumin Level 3.2 g/dL (3.5-5.2); Alkaline Phosphatase 159 IU/L (40-130); Anion Gap 18.6 (5-19); Aspartate Amino Transferase 81 U/L (0-40); Blood Urea Nitrogen 9 mg/dL (6-20); Calcium 11.2 mg/Dl (8.6-10.0); Carbon Dioxide 24 mmol/L (22-29); Chloride 94 mmol/L (98-107); Globulin 4.3 g/dL (1.3-4.6); Glomerular Filtration Rate 222.5 mL/min (90-130); Glucose 80 mg/dL (74-109); Potassium 3.6 mmol/L (3.5-5.1); Sodium 133 mmol/L (136-145); Total Bilirubin 0.6 mg/dL (0.15-1.2); Total Protein 7.5 g/dL (6.6-8.7)
--- NOTE | 2019-06-24 09:47 | PC.SOCIAL ---
Pg 2 IMM Explained to pt Pg 2 IMM. Pt verbally understands & signed. Provided a copy to pt & left on bedside table. Signed, dated, & timed, then placed in chart.
[2019-06-24] MEDS: morphine ER (12 HR) 15 mg Tablet PO ×2 (10:29→18:41)
--- NOTE | 2019-06-24 14:37 | P.PN_ITS ---
Subjective Subjective: Interval history: Reports pain in the left side of her chest is better with lidocaine patch. Today having mild discomfort in the right upper chest. Had an episode of vomiting overnight. Per discussion with RN last night was visited by several friends who were insistent on taking him outside to smoke. They were reportedly informed that this was not possible. Vitals/I&O/Wt Last Vital Signs Temp 98.0 F 06/24/19 11:03 Pulse 84 06/24/19 11:03 Resp 22 H 06/24/19 11:03 BP 132/73 06/24/19 11:03 Pulse Ox 94 06/24/19 11:03 06/23/19 06/24/19 06/24/19 22:59 06:59 14:59 Intake Total 1000 / 2120 Output Total 1075 / 1275 900 / 2175 200 / 200 Balance -1075 / -155 100 / -55 -200 / -200 Weight last 48 hrs Weight 65.771 kg Physical Exam Const: COMMON NORMALS: no apparent distress and oriented x3 GENERAL APPEARANCE: frail appearing and limp (Generally very weak.) HENMT: COMMON NORMALS: oropharynx normal Neck/C-Spine: COMMON NORMALS: no JVD Resp: COMMON NORMALS: normal respiratory effort and clear to auscultation bilaterally AUSCULTATION: clear to auscultation bilaterally Cardio: COMMON NORMALS: no JVD, regular rhythm, S1 normal heart sound, S2 normal heart sound and no murmurs RHYTHM: regular rhythm HEART SOUNDS: S1 normal and S2 normal GI: COMMON NORMALS: normal to inspection, nondistended, normoactive bowel sounds, soft to palpation and non-tender PALPATION: Yes soft Extremity: COMMON NORMALS: no joint enlargement and no pedal edema Neuro: COMMON NORMALS: oriented x3 and moves all extremities Skin: COMMON NORMALS: no rashes or lesions noted GENERAL SKIN EXAM: no rashes or lesions noted Data Micro: Micro: Microbiology 06/23/19 19:48 Chlamydia trachoma tis (RACHELL) - Final Urine Random Neisseria gonorrho eae (RACHELL) - Final A&P Assessment and plan (1) Hypercalcemia of malignancy: Calcium with gradual improvement, although appears plateaued around 11. Pamidronate should start working. It appears perhaps effective calcitonin is wearing off. If no further improvement would discontinue calcitonin tomorrow. Continue bisphosphonates through oncology, likely zoledronic acid. He is mildly more awake, mildly stronger. Continue IV hydration. Calcitonin today. Received pamidronate. Status: Acute Code(s): E83.52 - Hypercalcemia (2) Stage IV squamous cell carcinoma of lung: Pending molecular studies. He will be discussing immunotherapy with his oncologist once results are available. This will need to be arranged by oncology. With left lower chest pain, worse with movement, inspiration and palpation. Will request for lidocaine patch. With generalized deconditioning, pending placement to SNF for rehabilitation. Status: Acute Code(s): C34.90 - Malignant neoplasm of unspecified part of unspecified bronchus or lung (3) Bone metastases: With hypercalcemia. Would benefit from continuation of bisphosphonate after discharge. Status: Acute Code(s): C79.51 - Secondary malignant neoplasm of bone (4) Squamous cell lung cancer: Status: Acute Qualifiers: Laterality: unspecified laterality Qualified Code(s): C34.90 - Malignant neoplasm of unspecified part of unspecified bronchus or lung Code(s): C34.90 - Malignant neoplasm of unspecified part of unspecified bronchus or lung (5) IV drug abuse: History of substance abuse. Reports has had no substance abuse in the last 5 to 6 years. Status: Acute Code(s): F19.10 - Other psychoactive substance abuse, uncomplicated Additional A&P Information Additional A&P Information: Partner with STI: Yesterday patient significant other called in requesting that he be checked for STI as she said she had recently been diagnosed with several, although did not say which. I have ordered chlamydia, gonorrhea, syphilis, hepatitis screen. Attestations Medical Necessity Statement*: Continue admission for assessment of management of hypercalcemia related to malignancy, discussions of goals of care and disposition arrangements. Coding Level of Care Code Acute [employer] Thread Machine Operator for [facility]astel[facility] Diagnoses Hypercalcemia of malignancy E83.52 Stage IV squamous cell carcinoma of lung C34.90 Bone metastases C79.51 Squamous cell lung cancer C34.90 Laterality: unspecified laterality IV drug abuse F19.10
[2019-06-24] MEDS: lidocaine 5% Patch 1 PATCH TOPICAL (21:08)
[2019-06-25] VITALS (9 sets, daily range): BP systolic 108–126; BP diastolic 54–70; PULSE 85–101; RESP 16–22; TEMP 36.5–37.1; O2SAT 93–96
[2019-06-25] MEDS: enoxaparin 40 mg/0.4 mL Syringe SUBCUT (01:53)
[2019-06-25] MEDS: morphine IR 15 mg Tablet 30 MG PO ×2 (02:51→21:17)
[2019-06-25] MEDS: sodium chloride 0.9% 1,000 ML 100 ML IV ×3 (05:32→12:20)
[2019-06-25] MEDS: calcitonin,salmon 200 unit/mL SDV 2mL 250 UNIT SUBCUT ×2 (05:34→17:44)
[2019-06-25 06:43] LABS: Basophils % 0.2 %; Eosinophils % 0.3 %; Hematocrit 34.4 % (42.0-52.0); Hemoglobin 11.2 g/dL (11.7-16.6); Lymphocytes # 1.9 10^3/uL (0.8-4.8); Lymphocytes % 21.9 %; Mean Corpuscular HGB Conc 32.6 g/dL (30.0-36.0); Mean Corpuscular Hemoglobin 31.2 pg (28.0-34.0); Mean Corpuscular Volume 95.8 fL (80-94); Mean Platelet Volume 10.4 fL (7.4-10.4); Monocytes # 0.9 10^3/uL (0.2-0.9); Monocytes % 10.4 %; Neutrophils # 5.9 10^3/uL (1.8-7.7); Neutrophils % 66.7 %; Nucleated Red Blood Cells % 0 %; Platelet Count 293 10^3/cmm (130-400); Red Blood Count 3.59 10^6/uL (4.1-5.3); Red Cell Distribution Width 15.2 % (12.1-15.1); White Blood Count 8.8 10^3/uL (4.0-10.0)
[2019-06-25 07:03] LABS: Alanine Aminotransferase 49 U/L (0-41); Albumin Level 3.1 g/dL (3.5-5.2); Alkaline Phosphatase 159 IU/L (40-130); Aspartate Amino Transferase 84 U/L (0-40); Blood Urea Nitrogen 8 mg/dL (6-20); Calcium 11.1 mg/Dl (8.6-10.0); Carbon Dioxide 22 mmol/L (22-29); Chloride 94 mmol/L (98-107); Globulin 4.5 g/dL (1.3-4.6); Glomerular Filtration Rate 222.5 mL/min (90-130); Glucose 79 mg/dL (74-109); Sodium 133 mmol/L (136-145); Total Bilirubin 0.6 mg/dL (0.15-1.2); Total Protein 7.6 g/dL (6.6-8.7)
--- NOTE | 2019-06-25 08:53 | P.PN_ITS ---
Subjective Subjective: Interval history: Patient well-known to me from previous admission during which time he was newly diagnosed with non-small cell lung cancer with extensive bony metastasis, hypercalcemia with associated generalized weakness. A.m. labs noted. Appears slightly thinner than on my last encounter with him. Complains of pain though spends much of the day in bed sleeping. Appetite has been mediocre. Medications: Reviewed: Yes Medication Review Details: Current Medications Calcitonin [place] (Miacalcin) 250 unit SUBCUT Q12H [facility] Last Admin: 06/25/19 05:34 Dose: 250 unit Documented by: Enoxaparin Sodium (Lovenox) 40 mg SUBCUT Q24H [facility] Last Admin: 06/25/19 01:53 Dose: 40 mg Documented by: Sodium Chloride (Sodium Chloride 0.9%) 1,000 mls @ 100 mls/hr IV .Q10H [facility] Last Admin: 06/25/19 05:32 Dose: 100 mls/hr Documented by: Lidocaine (Lidoderm 5% Patch) 1 patch TOPICAL [id number] [facility] Last Admin: 06/24/19 21:08 Dose: 1 patch Documented by: Morphine Sulfate (Ms Contin) 15 mg PO BID [facility] Last Admin: 06/24/19 18:41 Dose: 15 mg Documented by: Morphine Sulfate (Msir) 30 mg PO Q4H PRN PRN Reason: SEVERE PAIN Last Admin: 06/25/19 02:51 Dose: 30 mg Documented by: Senna/Docusate Sodium (Senna-S) 1 tab PO BID [facility] Last Admin: 06/24/19 20:15 Dose: Not Given Documented by: Vitals/I&O/Wt Last Vital Signs Temp 98.2 F 06/25/19 07:20 Pulse 92 06/25/19 07:20 Resp 22 H 06/25/19 07:20 BP 111/61 06/25/19 07:20 Pulse Ox 94 06/25/19 07:20 06/24/19 06/25/19 06/25/19 22:59 06:59 14:59 Intake Total 270 / 1270 1000 / 2270 360 / 360 Output Total 775 / 975 850 / 1825 300 / 300 Balance -505 / 295 150 / 445 60 / 60 Weight last 48 hrs Weight 66.31 kg Weight 65.771 kg Physical Exam Narrative: EXAM NARRATIVE: Reviewed vital signs, stable Const: COMMON NORMALS: no apparent distress and oriented x3 GENERAL APPEARANCE: cooperative and appears older than stated age NUTRITIONAL APPEARANCE: thin ORIENTATION/CONSCIOUSNESS: Yes awake, Yes oriented to person, Yes oriented to place, Yes oriented to time and Yes other (Is alert and oriented x3 though somewhat slow to answer questions) HENMT: COMMON NORMALS: normocephalic, head/scalp atraumatic, hearing grossly normal bilaterally and external ears normal HEAD & SCALP: normocephalic and atraumatic EXTERNAL EAR: Yes external ears normal Eye: COMMON NORMALS: PERRL, EOMs intact bilaterally and conjunctivae normal CONJUNCTIVA: Yes conjunctivae normal PUPIL: Yes PERRL Neck/C-Spine: GENERAL: Yes normal visual inspection and Yes trachea midline Resp: COMMON NORMALS: normal respiratory effort; negative for no retractions and negative for no use of accessory muscles AUSCULTATION: diminished lung sounds bilateral OTHER: on RA Cardio: COMMON NORMALS: regular rate, regular rhythm, S1 normal heart sound, S2 normal heart sound, no murmurs, no rub and peripheral pulses 2+ throughout RATE: regular rate RHYTHM: regular rhythm HEART SOUNDS: S1 normal and S2 normal PERIPHERAL PULSES: pulses 2+ throughout GI: COMMON NORMALS: normal to inspection, nondistended, normoactive bowel sounds Neuro: COMMON NORMALS: oriented x3 SENSORIUM/ORIENTATION: Yes oriented to person, Yes oriented to place and Yes oriented to time Psych: COMMON NORMALS: mental status grossly normal and cooperative ATTITUDE: Yes calm Skin: COMMON NORMALS: no rashes or lesions noted GENERAL SKIN EXAM: no rashes or lesions noted and dry skin Data Micro: Micro: Microbiology 06/23/19 19:48 Chlamydia trachoma tis (RACHELL) - Final Urine Random Neisseria gonorrho eae (RACHELL) - Final Noted negative NG and CT; RPR pending A&P Assessment and plan (1) Stage IV squamous cell carcinoma of lung: -Recently diagnosed non-small cell lung cancer/squamous cell lung carcinoma with extensive bony metastasis -Follow-up with oncology -Pending results of molecular studies for decision on possible immunotherapy -Patient not ready for hospice at this time per goals of care discussion Status: Acute Qualifiers: Laterality: right Qualified Code(s): C34.91 - Malignant neoplasm of unspecified part of right bronchus or lung Code(s): C34.90 - Malignant neoplasm of unspecified part of unspecified bronchus or lung (2) Bone metastases: Extensive bony metastasis per imaging done during most recent admission -Pain control as needed -High risk for pathological fractures -Follow-up with oncology Status: Acute Code(s): C79.51 - Secondary malignant neoplasm of bone (3) Hypercalcemia of malignancy: -Hypercalcemia of malignancy secondary to metastatic squamous cell lung carcinoma -Improving with IV fluid hydration, calcitonin and received pamidronate -We will likely need continuation of bisphosphonates -Corrected calcium level is 11.8 -Continue bowel regimen Status: Acute Code(s): E83.52 - Hypercalcemia (4) Weakness: -Generalized weakness likely secondary to hypercalcemia of malignancy -Significantly deconditioned; continue fall precautions and encourage ambulation as tolerated with assistance as needed -PT/OT evaluations appreciated -SNF placement ongoing Status: Acute Code(s): R53.1 - Weakness (5) Sexually transmitted infection: -Recently informed by sexual partner that she has been diagnosed with multiple STIs -Negative for chlamydia and gonorrhea; RPR pending; negative hepatitis panel Status: Acute Code(s): A64 - Unspecified sexually transmitted disease (6) IV drug abuse: -Has history of IV substance abuse; abstinence x 5 to 6 years Status: Acute Code(s): F19.10 - Other psychoactive substance abuse, uncomplicated Additional A&P Information Additional A&P Information: -hx of chronic smoking -regular diet as tolerated -DVT ppx with Lovenox -Dispo: pending SNF placement -Code status: DNR/DNI Attestations Medical Necessity Statement*: Patient requires hospitalization for continued management of hypercalcemia of malignancy, adequate pain control pending appropriate disposition Coding Level of Care Code Acute Hospital Education Coordinator for [facility] Fwd Diagnoses Stage IV squamous cell carcinoma of lung C34.91 Laterality: right Bone metastases C79.51 Hypercalcemia of malignancy E83.52 Weakness R53.1 Sexually transmitted infection A64 IV drug abuse F19.10
[2019-06-25] MEDS: morphine ER (12 HR) 15 mg Tablet PO ×2 (09:22→17:44)
[2019-06-25] MEDS: lidocaine 5% Patch 1 PATCH TOPICAL (21:09)
[2019-06-26] VITALS (8 sets, daily range): BP systolic 114–128; BP diastolic 53–71; PULSE 79–101; RESP 14–22; TEMP 36.6–37.1; O2SAT 93–97
[2019-06-26] MEDS: sodium chloride 0.9% 1,000 ML 100 ML IV ×3 (01:02→23:15)
[2019-06-26] MEDS: enoxaparin 40 mg/0.4 mL Syringe SUBCUT (01:55)
[2019-06-26 05:57] LABS: Basophils % 0.1 %; Eosinophils # 0.1 10^3/uL (0.0-0.8); Eosinophils % 1.1 %; Hematocrit 33.1 % (42.0-52.0); Lymphocytes # 1.7 10^3/uL (0.8-4.8); Lymphocytes % 20.7 %; Mean Corpuscular HGB Conc 33.2 g/dL (30.0-36.0); Mean Corpuscular Hemoglobin 32.4 pg (28.0-34.0); Mean Corpuscular Volume 97.6 fL (80-94); Mean Platelet Volume 10.5 fL (7.4-10.4); Monocytes % 11.6 %; Neutrophils # 5.5 10^3/uL (1.8-7.7); Neutrophils % 66.3 %; Nucleated Red Blood Cells % 0 %; Platelet Count 270 10^3/cmm (130-400); Red Blood Count 3.39 10^6/uL (4.1-5.3); Red Cell Distribution Width 15.4 % (12.1-15.1); White Blood Count 8.3 10^3/uL (4.0-10.0)
[2019-06-26] MEDS: morphine IR 15 mg Tablet 30 MG PO ×3 (06:36→21:21)
[2019-06-26] MEDS: calcitonin,salmon 200 unit/mL SDV 2mL 250 UNIT SUBCUT (06:36)
[2019-06-26] MEDS: lidocaine 5% Patch 1 PATCH TOPICAL ×2 (08:49→21:15)
[2019-06-26] MEDS: morphine ER (12 HR) 15 mg Tablet PO ×2 (08:50→18:20)
--- NOTE | 2019-06-26 10:18 | P.PN_ITS ---
Subjective Subjective: Interval history: Morning labs reviewed including corrected calcium of 12. Had 1320 mL urine output overnight. Last bowel movement was on 06/25. Patient seen and examined, easily arousable continues to spend much of his day sleeping. Disposition pending. Medications: Reviewed: Yes Medication Review Details: Active Medications Generic Name Dose Route Start Last Admin Trade Name Freq PRN Reason Stop Dose Admin Calcitonin [place] 250 unit 06/21/19 18:00 06/26/19 06:36 Miacalcin SUBCUT 250 unit Q12H [facility] Administration Enoxaparin Sodium 40 mg 06/21/19 02:00 06/26/19 01:55 Lovenox SUBCUT 40 mg Q24H [facility] Administration Sodium Chloride 1,000 mls @ 100 m ls/hr 06/21/19 00:45 06/26/19 12:36 Sodium Chloride 0.9% IV 100 mls/hr .Q10H [facility] Administration Lidocaine 1 patch 06/23/19 21:00 06/26/19 08:49 Lidoderm 5% Patc h TOPICAL 1 patch O12O12 [facility] Administration Morphine Sulfate 15 mg 06/21/19 09:00 06/26/19 08:50 Ms Contin PO 15 mg BID [facility] Administration Morphine Sulfate 30 mg 06/25/19 01:12 06/26/19 12:26 Msir PO 30 mg Q4H PRN Administration SEVERE PAIN Senna/Docusate Sod ium 1 tab 06/21/19 09:00 06/26/19 08:50 Senna-S PO Not Given BID [facility]ETH No Known Allergies Allergy (Verified 06/21/19 02:59) Vitals/I&O/Wt Last Vital Signs Temp 98.7 F 06/26/19 07:16 Pulse 101 H 06/26/19 07:16 Resp 22 H 06/26/19 07:16 BP 118/53 06/26/19 07:16 Pulse Ox 94 06/26/19 07:16 06/25/19 06/26/19 06/26/19 22:59 06:59 14:59 Intake Total 1000 / 2040.000 Output Total 720 / 1240 750 / 1989 200 / 200 Balance 280 / 800.000 -750 / 50.000 -200 / -200 Weight last 48 hrs Weight 66.224 kg Weight 66.31 kg Physical Exam Narrative: EXAM NARRATIVE: Reviewed vital signs, stable Const: COMMON NORMALS: no apparent distress and oriented x3 GENERAL APPEARANCE: cooperative and appears older than stated age NUTRITIONAL APPEARANCE: thin ORIENTATION/CONSCIOUSNESS: Yes awake, Yes oriented to person, Yes oriented to place, Yes oriented to time and Yes other (Is alert and oriented x3 though somewhat slow to answer questions) HENMT: COMMON NORMALS: normocephalic, head/scalp atraumatic, hearing grossly normal bilaterally and external ears normal HEAD & SCALP: normocephalic and atraumatic EXTERNAL EAR: Yes external ears normal Eye: COMMON NORMALS: PERRL, EOMs intact bilaterally and conjunctivae normal CONJUNCTIVA: Yes conjunctivae normal PUPIL: Yes PERRL Neck/C-Spine: GENERAL: Yes normal visual inspection and Yes trachea midline Resp: COMMON NORMALS: normal respiratory effort; negative for no retractions and negative for no use of accessory muscles AUSCULTATION: diminished lung sounds bilateral OTHER: on RA Cardio: COMMON NORMALS: regular rate, regular rhythm, S1 normal heart sound, S2 normal heart sound, no murmurs, no rub and peripheral pulses 2+ throughout RATE: regular rate RHYTHM: regular rhythm HEART SOUNDS: S1 normal and S2 normal PERIPHERAL PULSES: pulses 2+ throughout GI: COMMON NORMALS: normal to inspection, nondistended, normoactive bowel sounds Neuro: COMMON NORMALS: oriented x3 SENSORIUM/ORIENTATION: Yes oriented to person, Yes oriented to place and Yes oriented to time Psych: COMMON NORMALS: mental status grossly normal and cooperative ATTIT UDE: Yes calm Skin: COMMON NORMALS: no rashes or lesions noted GENERAL SKIN EXAM: no rashes or lesions noted and dry skin Data Labs: Other Labs: All Labs last 24 hrs except CBC/BMP 06/20/19 06/20/19 06/21/19 20:44 20:44 04:20 WBC 14.0 H RBC Hgb 13.6 Hct 40.3 L MCV MCH MCHC RDW Plt Count 352 MPV Neut % (Auto) Lymph % (Auto) [place] % (Auto) Eos % (Auto) Baso % (Auto) Neut # (Auto) Lymph # (Auto) [place] # (Auto) Eos # (Auto) Baso # (Auto) Nucleated RBC % (a uto) Nucleated RBCs # Sodium 132 L 133 L Potassium 4.8 4.5 Chloride 89 L 91 L Carbon Dioxide 20 L 20 L Anion Gap 27.8 H 26.5 H BUN 18 19 Creatinine 0.6 L 0.6 L GFR Calculation Glucose 88 90 Calcium Total Bilirubin AST ALT Alkaline Phosphata se Total Protein Albumin Globulin 06/22/19 06/22/19 06/23/19 05:26 07:04 04:25 WBC 8.9 6.7 RBC Hgb 11.7 11.7 Hct 37.0 L 35.4 L MCV MCH MCHC RDW Plt Count 285 268 MPV Neut % (Auto) Lymph % (Auto) [place] % (Auto) Eos % (Auto) Baso % (Auto) Neut # (Auto) Lymph # (Auto) [place] # (Auto) Eos # (Auto) Baso # (Auto) Nucleated RBC % (a uto) Nucleated RBCs # Sodium 133 L Potassium 4.3 Chloride 98 Carbon Dioxide 16 L Anion Gap 23.3 H BUN 10 Creatinine 0.6 L GFR Calculation Glucose 86 Calcium Total Bilirubin AST ALT Alkaline Phosphata se Total Protein Albumin Globulin 06/23/19 06/24/19 06/24/19 04:25 05:15 05:15 WBC 6.9 RBC Hgb 11.2 L Hct 33.4 L MCV MCH MCHC RDW Plt Count 257 MPV Neut % (Auto) Lymph % (Auto) [place] % (Auto) Eos % (Auto) Baso % (Auto) Neut # (Auto) Lymph # (Auto) [place] # (Auto) Eos # (Auto) Baso # (Auto) Nucleated RBC % (a uto) Nucleated RBCs # Sodium 131 L 133 L Potassium 4.0 3.6 Chloride 93 L 94 L Carbon Dioxide 20 L 24 Anion Gap 22.0 H 18.6 BUN 10 9 Creatinine 0.4 L 0.4 L GFR Calculation Glucose 72 L 80 Calcium Total Bilirubin AST ALT Alkaline Phosphata se Total Protein Albumin Globulin 06/25/19 06/25/19 06/26/19 06:13 06:13 05:11 WBC 8.8 8.3 RBC 3.39 L Hgb 11.2 L 11.0 L Hct 34.4 L 33.1 L MCV 97.6 H MCH 32.4 MCHC 33.2 RDW 15.4 H Plt Count 293 270 MPV 10.5 H Neut % (Auto) 66.3 Lymph % (Auto) 20.7 [place] % (Auto) 11.6 Eos % (Auto) 1.1 Baso % (Auto) 0.1 Neut # (Auto) 5.5 Lymph # (Auto) 1.7 [place] # (Auto) 1.0 H Eos # (Auto) 0.1 Baso # (Auto) 0.0 Nucleated RBC % (a uto) 0 Nucleated RBCs # 0.0 Sodium 133 L Potassium 4.0 Chloride 94 L Carbon Dioxide 22 Anion Gap 21.0 H BUN 8 Creatinine 0.4 L GFR Calculation Glucose 79 Calcium Total Bilirubin AST ALT Alkaline Phosphata se Total Protein Albumin Globulin 3 06/26/19 05:11 WBC RBC Hgb Hct MCV MCH MCHC RDW Plt Count MPV Neut % (Auto) Lymph % (Auto) [place] % (Auto) Eos % (Auto) Baso % (Auto) Neut # (Auto) Lymph # (Auto) [place] # (Auto) Eos # (Auto) Baso # (Auto) Nucleated RBC % (a uto) Nucleated RBCs # Sodium 133 L Potassium 3.5 Chloride 95 L Carbon Dioxide 18 L Anion Gap 23.5 H BUN 5 L Creatinine 0.4 L GFR Calculation 222.5 H Glucose 77 Calcium 11.1 H Total Bilirubin 0.6 AST 76 H ALT 44 H Alkaline Phosphata se 147 H Total Protein 7.1 Albumin 2.9 L Globulin 4.2 A&P Assessment and plan (1) Stage IV squamous cell carcinoma of lung: -Recently diagnosed non-small cell lung cancer/squamous cell lung carcinoma with extensive bony metastasis -Follow-up with oncology -Pending results of molecular studies for decision on possible immunotherapy -Patient not ready for hospice at this time per goals of care discussion Status: Acute Qualifiers: Laterality: right Qualified Code(s): C34.91 - Malignant neoplasm of un specified part of right bronchus or lung Code(s): C34.90 - Malignant neoplasm of unspecified part of unspecified bronchus or lung (2) Bone metastases: Extensive bony metastasis per imaging done during most recent admission -Pain control as needed -High risk for pathological fractures -Follow-up with oncology Status: Acute Code(s): C79.51 - Secondary malignant neoplasm of bone (3) Hypercalcemia of malignancy: -Hypercalcemia of malignancy secondary to metastatic squamous cell lung carcinoma -Improving with IV fluid hydration, calcitonin and received pamidronate -We will likely need continuation of bisphosphonates -Corrected calcium level is 12 -Continue bowel regimen Status: Acute Code(s): E83.52 - Hypercalcemia (4) Weakness: -Generalized weakness likely secondary to hypercalcemia of malignancy -Significantly deconditioned; continue fall precautions and encourage ambulation as tolerated with assistance as needed -PT/OT evaluations appreciated -SNF placement ongoing Status: Acute Code(s): R53.1 - Weakness (5) Sexually transmitted infection: -Recently informed by sexual partner that she has been diagnosed with multiple STIs -Negative for chlamydia and gonorrhea; RPR pending; negative hepatitis panel Status: Acute Code(s): A64 - Unspecified sexually transmitted disease (6) IV drug abuse: -Has history of IV substance abuse; abstinence x 5 to 6 years Status: Acute Code(s): F19.10 - Other psychoactive substance abuse, uncomplicated Additional A&P Information Additional A&P Information: -hx of chronic smoking -regular diet as tolerated -DVT ppx with Lovenox -Dispo: pending SNF placement. Has very poor social support system locally -Code status: DNR/DNI Attestations Medical Necessity Statement*: Patient requires hospitalization for continued pain control, IV fluid hydration, monitoring of calcium levels, pending appropriate disposition. Coding Level of Care Code Acute Ct Technician for Stephanie Gastelum Exam Problem Focused Diagnoses Stage IV squamous cell carcinoma of lung C34.91 Laterality: right Bone metastases C79.51 Hypercalcemia of malignancy E83.52 Weakness R53.1 Sexually transmitted infection A64 IV drug abuse F19.10
[2019-06-26 10:41] LABS: Alanine Aminotransferase 44 U/L (0-41); Albumin Level 2.9 g/dL (3.5-5.2); Alkaline Phosphatase 147 IU/L (40-130); Anion Gap 23.5 (5-19); Aspartate Amino Transferase 76 U/L (0-40); Blood Urea Nitrogen 5 mg/dL (6-20); Calcium 11.1 mg/Dl (8.6-10.0); Carbon Dioxide 18 mmol/L (22-29); Chloride 95 mmol/L (98-107); Globulin 4.2 g/dL (1.3-4.6); Glomerular Filtration Rate 222.5 mL/min (90-130); Glucose 77 mg/dL (74-109); Potassium 3.5 mmol/L (3.5-5.1); Sodium 133 mmol/L (136-145); Total Bilirubin 0.6 mg/dL (0.15-1.2); Total Protein 7.1 g/dL (6.6-8.7)
--- NOTE | 2019-06-26 11:00 | PC.SOCIAL ---
IMM Updated Page 2 of IMM updated and given to patient. Initialed, dated, and timed and placed back in chart.
[2019-06-27] VITALS (8 sets, daily range): BP systolic 115–145; BP diastolic 66–83; PULSE 69–103; RESP 14–21; TEMP 36.6–37.3; O2SAT 95–98
[2019-06-27] MEDS: enoxaparin 40 mg/0.4 mL Syringe SUBCUT (02:10)
[2019-06-27 05:48] LABS: Alanine Aminotransferase 45 U/L (0-41); Albumin Level 3.2 g/dL (3.5-5.2); Alkaline Phosphatase 147 IU/L (40-130); Anion Gap 22.4 (5-19); Aspartate Amino Transferase 77 U/L (0-40); Blood Urea Nitrogen 5 mg/dL (6-20); Carbon Dioxide 19 mmol/L (22-29); Chloride 98 mmol/L (98-107); Globulin 3.7 g/dL (1.3-4.6); Glomerular Filtration Rate 222.5 mL/min (90-130); Glucose 78 mg/dL (74-109); Potassium 3.4 mmol/L (3.5-5.1); Sodium 136 mmol/L (136-145); Total Bilirubin 0.8 mg/dL (0.15-1.2); Total Protein 6.9 g/dL (6.6-8.7)
[2019-06-27] MEDS: calcitonin,salmon 200 unit/mL SDV 2mL 250 UNIT SUBCUT (06:51)
[2019-06-27] MEDS: morphine ER (12 HR) 15 mg Tablet PO (09:22)
[2019-06-27] MEDS: lidocaine 5% Patch 1 PATCH TOPICAL (09:22)
--- NOTE | 2019-06-27 09:43 | PC.OT ---
OT note: Will discharge patient from OT at this time. Pt reported he doesn't need help with his ADLs and declined at this time. He demonstrated independence with mobility to and from bathroom in room without device, was able to reach to floor and up above head without loss of balance. No further OT indicated at this time.
[2019-06-27] MEDS: morphine IR 15 mg Tablet 30 MG PO ×2 (11:28→15:41)
[2019-06-27] MEDS: sodium chloride 0.9% 1,000 ML 100 ML IV (11:29)
--- NOTE | 2019-06-27 13:55 | P.DS_ITS ---
Discharge Providers Date of Admission: 06/21/19 16:00 Date of Discharge: 06/27/19 Attending Provider at Admission: Jannet Hollingsworth MD Attending Provider at Discharge: Flor Castellanos MD Primary Care Provider: Tressa Astorga Diagnoses at Discharge Discharge Diagnosis (1) Stage IV squamous cell carcinoma of lung: Status: Acute Problem details: -Recently diagnosed non-small cell lung cancer/squamous cell lung carcinoma with extensive bony metastasis -Follow-up with oncology Dr. Hammer as soon as next available appointment -Pending results of molecular studies for decision on possible immunotherapy -Patient not ready for hospice at this time per goals of care discussion Qualifiers: Laterality: right Qualified Code(s): C34.91 - Malignant neoplasm of unspecified part of right bronchus or lung (2) Bone metastases: Status: Acute Problem details: -Extensive bony metastasis per imaging done during most recent admission -Pain control as needed; high pain requirement -High risk for pathological fractures -Follow-up with oncology (3) Hypercalcemia of malignancy: Status: Acute Problem details: -Improving with IV fluid hydration, calcitonin and received pamidronate -We will likely need continuation of bisphosphonates -Corrected calcium level is 11.6 -Continue bowel regimen (4) Weakness: Status: Acute Problem details: -Generalized weakness likely secondary to hypercalcemia of malignancy -Significantly deconditioned; continue fall precautions and encourage ambulation as tolerated with assistance as needed -PT/OT evaluations appreciated (5) Sexually transmitted infection: Status: Acute Problem details: -Recently informed by sexual partner that she has been diagnosed with multiple STIs -Negative for chlamydia and gonorrhea; RPR pending; negative hepatitis panel (6) IV drug abuse: Status: Acute Problem details: -Has history of IV substance abuse; abstinence x 5 to 6 years Reason for Visit Reason for Visit: Reason For Visit: WEAK Hospital Course Hospital Course: Patient is well-known to me from recent admission during which time he was diagnosed with non-small cell lung cancer with extensive bony metastasis. Following extensive discussion patient decided to seek treatment and radiation oncology as well as hematology/oncology were consulted. Additional studies were done specifically to determine if candidate for immunotherapy. Patient redeveloped hypercalcemia of malignancy requiring aggressive IV fluid hydration, bisphosphonates and calcitonin. Calcium has improved though not quite normalized. Due to extensive bony metastasis patient has been dealing with severe pain and has a high pain requirement. He was admitted to the medical surgical floor. Social situation is extremely poor and with increased weakness and deconditioning, high risk for pathological fractures, high pain requirement and need for close access to medical care, alternative disposition was arranged. Patient was agreeable to SNF placement and once this was arranged, he was discharged to [facility] with appropriate follow up appointments. Discharge Summary: -Refer to H&P and progress notes for more detailed information. Hospital course is as dictated above. Physical Exam Narrative: EXAM NARRATIVE: Reviewed vital signs, stable Const: COMMON NORMALS: no apparent distress and oriented x3 GENERAL APPEARANCE: cooperative and appears older than stated age NUTRITIONAL APPEARANCE: thin ORIENTATION/CONSCIOUSNESS: Yes awake, Yes oriented to person, Yes oriented to place, Yes oriented to time and Yes other (Is alert and oriented x3 though somewhat slow to answer questions) HENMT: COMMON NORMALS: normocephalic, head/scalp atraumatic, hearing grossly normal bilaterally and external ears normal HEAD & SCALP: normocephalic and atraumatic EXTERNAL EAR: Yes external ears normal Eye: COMMON NORMALS: PERRL, EOMs intact bilaterally and conjunctivae normal CONJUNCTIVA: Yes conjunctivae normal PUPIL: Yes PERRL Neck/C-Spine: GENERAL: Yes normal visual inspection and Yes trachea midline Resp: COMMON NORMALS: normal respiratory effort; negative for no retractions and negative for no use of accessory muscles AUSCULTATION: diminished lung sounds bilateral OTHER: on RA Cardio: COMMON NORMALS: regular rate, regular rhythm, S1 normal heart sound, S2 normal heart sound, no murmurs, no rub and peripheral pulses 2+ throughout RATE: regular rate RHYTHM: regular rhythm HEART SOUNDS: S1 normal and S2 normal PERIPHERAL PULSES: pulses 2+ throughout GI: COMMON NORMALS: normal to inspection, nondistended, normoactive bowel sounds Neuro: COMMON NORMALS: oriented x3 SENSORIUM/ORIENTATION: Yes oriented to person, Yes oriented to place and Yes oriented to time Psych: COMMON NORMALS: mental status grossly normal and cooperative ATTITUDE: Yes calm Skin: COMMON NORMALS: no rashes or lesions noted GENERAL SKIN EXAM: no rashes or lesions noted and dry skin Discharge Data Data Completed and Pending: Completed Studies During Hospitalization Category Date Time Status XR chest 1V chris ble [id number] Stat Exams 06/20/19 21:27 Completed Pending at discharge Category Date Time Status Rapid Plasma Reag in Syphilis Routin e Lab 06/23/19 04:55 Received Labs from last 24 hours 06/27/19 04:53 Sodium 136 Potassium 3.4 L Chloride 98 Carbon Dioxide 19 L Anion Gap 22.4 H BUN 5 L Creatinine 0.4 L GFR Calculation 222.5 H Glucose 78 Calcium 11.0 H Total Bilirubin 0.8 AST 77 H ALT 45 H Alkaline Phosphata se 147 H Total Protein 6.9 Albumin 3.2 L Globulin 3.7 Vitals: Last Vital Signs Temp 99.2 F 06/27/19 11:55 Pulse 92 06/27/19 11:55 Resp 18 06/27/19 11:55 BP 145/79 06/27/19 11:55 Pulse Ox 98 06/27/19 11:55 Discharge Plan Discharge Patient Disposition: Xfer SNF Condition: Stable Prescriptions: New lidocaine 5 % adhesive patch,medicated 1 patch TOPICAL DAILY 30 Days Qty: 30 RF: 0 sennosides-docusate sodium 8.6-50 mg Tablet 1 tab PO BID 30 Days Qty: 60 RF: 0 morphine 15 mg Tablet Extended Release 15 mg PO BID 30 Days Qty: 60 RF: 0 morphine 15 mg Tablet 30 mg PO Q4H PRN (Reason: Severe Pain) 5 Days Qty: 30 RF: 0 calcitonin (salmon) 200 unit/actuation spray,non-aerosol 1 spray intranasal (ALT) DAILY Qty: 3.7 RF: 0 Discharge Orders: Discharge Order (Routine); Ordered 06/27/19 Ordered By: Flor Castellanos Referrals: Tressa Astorga DO [Primary Care Provider] - 4-7 days Katie Hammer MD [Staff Physician] - 7-10 days Discharge Diet: appropriate hydration with water encouraged Discharge Activity: continue fall precautions Patient Instructions: Lung Cancer (DC), Hypercalcemia (GEN) Discharge Attestations Time Spent in Discharge Care*: greater than 30 min Specific Discharge Activities: Specific discharge activities: educating patient and evaluating patient/reviewing data Quality Metrics Clinical Quality Measures During this hospital stay, did patient experience: None Coding Level of Care Code Acute [employer] Super[employer] for [employer] Diagnoses Stage IV squamous cell carcinoma of lung C34.91 Laterality: right Bone metastases C79.51 Hypercalcemia of malignancy E83.52 Weakness R53.1 Sexually transmitted infection A64 IV drug abuse F19.10
== END 2019-06-27 18:23 | disposition skilled nursing facility (03) | DRG 641 ==
LOC: ER 21:36 → MEDSURG 06-21 00:19
PROVIDERS: Internal Medicine; Nurse Practitioner Family; Admitting Provider Internal Medicine; Emergency Provider Emergency Medicine; Family Provider Family Medicine; PCP Family Medicine; Visit Provider Family Medicine
DX: E83.52 Hypercalcemia (principal); C79.51 Secondary malignant neoplasm of bone; C34.91 Malignant neoplasm of unspecified part of right bronchus or lung; F19.10 Other psychoactive substance abuse, uncomplicated; Z87.891 Personal history of nicotine dependence
CPT/HCPCS: 36415; 71045; 80048; 80053; 80074; 81003; 85025; 86592; 87491; 87591; 96372; 96374; 97161; 97167; 97530; 97535; 99203; 99281; G0378; J0630; J1170; J1650; J2270; J2405; J2430; J3010; J7030; J7040

== ENCOUNTER 2019-07-04 19:06 | Inpatient (IN) | payer MEDICARE, MEDICAID, SELFPAY ==
[2019-07-04 19:07] VITALS: BP 149/89; PULSE 109; RESP 18; TEMP 36.8; O2SAT 95; BMI 28.1
--- NOTE | 2019-07-04 19:13 | XR_ITS ---
WS: [id number] PORTABLE CHEST HISTORY: cough COMPARISON: 06/20/2019 Adjacent has a known RIGHT hilar mass which is enlarging now measuring 4.5 x 5.0 cm. There are adjace nt soft tissue opacifications developing which could be tumor extension, postobstructive atelectasis or pneumonia. Scattered opacifications bilaterally in the lower lung buenrostro are new also. No pleural effusion or pneumothorax. Cardiac size: Normal. Mediastinum/Aorta: Calcified hilar lymph nodes. Mixed lytic sclerotic lesion in the proximal LEFT humerus probably an enchondroma. Patient also has k nown osseous metastatic disease. Destructive process in the posterior LEFT third rib. XR/XR chest 1V portable [id number] IMPRESSION: 1. Enlarging RIGHT hilar known neoplasm. 2. New developing opacifications adjacent to the RIGHT hilar mass and the lowe r lung buenrostro bilaterally. Probably combination of pneumonitis and atelectasis. Lymphangitic spread of tumor or postobstructive atelectasis on the RIGHT also is possible.
--- NOTE | 2019-07-04 19:13 | CTR_ITS ---
PROCEDURE INFORMATION: Exam: CT Head Without Contrast Exam date and time: 07/04/2019 7:34 PM Age: 58 years old Clinical indication: Altered mental status/memory loss; Patient HX: Ams/ poss over medication at halfway/ fall x2 in past 24 hours; Additional info: Garcia/ams TECHNIQUE: Imaging protocol: Computed tomography of the head without contrast. Total DLP: 875.43 mGy-cm Radiation optimization: All CT scans at this facility use at least one of these dose optimization techniques: automated exposure control; mA and/or kV adjustment per patient size (includes targeted exams where dose is matched to clinical indication); or iterative reconstruction. COMPARISON: CT head wo con* [id number] 06/11/2019 3:51 PM FINDINGS: Brain: Moderate cortical volume loss. No abnormal brain attenuation. No intracranial hemorrhage. Ventricles: Normal. No ventriculomegaly. Bones/joints: Multiple lytic lesions in the calvarium and sclerotic reason in the right frontal calvarium are unchanged. Sinuses: Visualized sinuses are unremarkable. No fluid levels. Mastoid air cells: Visualized mastoid air cells are well aerated. Soft tissues: Unremarkable. CT/CT head wo con* [id number] IMPRESSION: 1. No acute intracranial abnormality. 2. 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 Radiation Dose CTDIVOL = (mGy): DLP = 875.43 (mGy-cm)
--- NOTE | 2019-07-04 19:14 | ECG_ITS ---
Measurements Intervals [place] Rate: 105 P: 61 ND: 165 QRS: 53 QRSD: 84 T: 53 QT: 302 QTc: 400 SINUS TACHYCARDIA NONSPECIFIC T-WAVE ABNORMALITY ABNORMAL RHYTHM ECG Compared to ECG 06/04/2019 21:21:24 Sinus rhythm no longer present T-wave abnormality still present Electronically Signed On 07-05-2019 22:25:43 RANGE MOUNTER by Marni Sorensen M.D. [email or web address]
--- NOTE | 2019-07-04 19:23 | ED_ITS ---
Entered by Jamee Briseno, acting as scribe for HPI - Altered Mental Status General: Chief Complaint: Altered Mental Status Stated Complaint: AMS Time Seen by Provider: 07/04/19 19:13 Source: patient Mode of arrival: EMS Limitations: altered mental status History of Present Illness: HPI narrative: 58 yo Male presents to ED with complaint of altered mental status. Pt states he isn't hurting anywhere. Pt states he lives in assisted living. Pt is unable to answer questions appropriately. Per EMS, [facility] states that patient began having altered mental status after having a visitor around noon today and had 2 falls. Per EMS, Narcan was given to the patient enroute and the patient became more alert. MD complaint: altered mental status Onset (ago): hour(s) (7) Timing confirmed by: other (prison staff) Severity: moderate Consistency of symptoms: Getting Worse Context: unknown Associated symptoms: Reports no associated symptoms Treatments prior to arrival: other (Narcan) Review of Systems General: Reports: other (negative unless marked) Const: Denies: fever, chills, body aches, fatigue, malaise or diaphoresis Eyes: Denies: change in vision or blurry vision ENMT: Denies: throat pain, painful swallowing, hoarseness, ear pain, ear discharge, Change in hearing or nasal discharge Card: Denies: chest pain, palpitations, irregular heart rhythm, syncope, pre- syncope, shortness of breath on exertion or shortness of breath when lying down Resp: Denies: shortness of breath, productive cough, non-productive cough, wheezing, coughing up blood or chest congestion GI: Denies: abdominal pain, nausea, vomiting, vomiting blood, coffee grounds in vomit, diarrhea, constipation, cramping, blood in stool or black tarry stool : Denies: flank pain, difficulty urinating, painful urination, urinary frequency, urinary urgency, decreased urine ouput, urinary incontinence or blood in urine Musc: Denies: neck pain, back pain, extremity pain, extremity swelling, joint pain, joint swelling, joint warmth or joint stiffness Skin/Breast: Denies: rash, skin tenderness or yellow skin Neuro: Reports: other (altered mental status); Denies: headache, numbness in extremities, weakness in extremities, changes in sensation, lack of coordination, difficulty walking, dizziness, vertigo or confusion Endo: Denies: excessive thirst, tired all the time, cold intolerance, exces sive sweating, flushing or hot flashes Gil/Lymph: Denies: easy bruising, easy bleeding, petechiae or enlarged lymph nodes All/Imm: Denies: hives, throat swelling, tongue swelling, facial swelling or acute wheezing PFSH ED PFSH: Statuses (acute, chronic, etc) shown below reflect problem list status as previously entered and may not be historically accurate Medical History Bone metastases (Acute) -Extensive bony metastasis per imaging done during most recent admission -Pain control as needed; high pain requirement -High risk for pathological fractures -Follow-up with oncology Fibrous dysplasia (monostotic), left forearm (Acute) Fracture of left foot (Acute) Hypercalcemia of malignancy (Acute) -Improving with IV fluid hydration, calcitonin and received pamidronate -We will likely need continuation of bisphosphonates -Corrected calcium level is 11.6 -Continue bowel regimen IV drug abuse (Acute) -Has history of IV substance abuse; abstinence x 5 to 6 years 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 Hammer as soon as next available appointment -Pending results of molecular studies for decision on possible immunotherapy -Patient not ready for hospice at this time per goals of care discussion Surgical History H/O shoulder surgery (Acute) History of dental surgery (Acute) Family History Denies family history of CAD (coronary artery disease) Bleeding disorder Cancer Social History Smoking and tobacco status: unknown if ever smoked Quit status (tobacco): has quit using tobacco Year quit tobacco: 2019 Alcohol intake: former Current gender identity: Male Physical Exam Const: COMMON NORMALS: no apparent distress, oriented x3, no limitations, healthy appearing and well nourished EXAM LIMITATIONS: no altered mental status GENERAL APPEARANCE: cooperative, well kempt and well developed ORIENTATION/CONSCIOUSNESS: Yes awake HENMT: COMMON NORMALS: normocephalic, head/scalp atraumatic, hearing grossly normal bilaterally, external ears normal, EAC's normal, external nose normal and moist oral mucous membranes HEAD & SCALP: normal to inspection, normocephalic and atraumatic FACE & SINUS: normal facial exam and face symmetric NOSE: external nose normal and nares normal EXTERNAL EAR: Yes external ears normal EXTERNAL AUDITORY CANAL: EAC's normal MOUTH: oral and palatal mucosa normal and tongue normal Eye: COMMON NORMALS: PERRL, EOMs intact bilaterally, conjunctivae normal and no scleral icterus GENERAL EYE: normal appearance of both eyes and normal light reflex CONJUNCTIVA: Yes conjunctivae normal SCLERA: sclerae normal CORNEA: Yes corneas normal PUPIL: Yes PERRL DIRECT OPHTHALMOSCOPY: Yes normal light reflex Neck/C-Spine: COMMON NORMALS: full ROM, no lymphadenopathy, supple, no meningeal signs and no JVD GENERAL: Yes normal visual inspection and Yes trachea midline CERVICAL SPINE: Yes cervical ROM normal Chest: COMMONS NORMALS: inspection of chest normal and palpation of chest normal Resp: COMMON NORMALS: normal respiratory effort, no retractions, no use of accessory muscles and clear to auscultation bilaterally EFFORT & INSPECTION: Yes able to speak in complete sentences AUSCULTATION: clear to auscultation bilaterally Cardio: COMMON NORMALS: no JVD, regular rate, regular rhythm, S1 normal heart sound, S2 normal heart sound, no gallops, no clicks, no murmurs and no rub JUGULAR VENOUS DISTENTION: no JVD RATE: regular rate RHYTHM: regular rhythm HEART SOUNDS: S1 normal and S2 normal GI: COMMON NORMALS: soft to palpation, non-tender, no hepatosplenomegaly and no masses INSPECTION: Yes normal to inspection PALPATION: Yes soft and Yes no hepatosplenomegaly : COMMON NORMALS: Yes no CVA tenderness BLADDER/KIDNEY EXAM: Yes no CVA tenderness Back/Pelvis: COMMON NORMALS: no CVA tenderness, thoracic and lumbar spine normal to inspection, no thoracic nor lumbar tenderness and thoraco-lumbar ROM normal Extremity: COMMON NORMALS: normal to inspection, full ROM, normal capillary refill, no joint enlargement, no clubbing, cyanosis or edema and no calf tenderness Neuro: COMMON NORMALS: oriented x3, CN's II-XII intact bilaterally, moves all extremities, no focal motor deficits and no sensory deficits noted MENINGEAL SIGNS: Yes no meningeal signs Psych: COMMON NORMALS: mental status grossly normal, thought process normal, cooperative, affect normal, speech normal and activity/motor behavior normal APPEARANCE: Yes well kempt SPEECH: Yes normal speech THOUGHT PROCESS: normal thought process Skin: COMMON NORMALS: no rashes or lesions noted, skin turgor normal, no jaundice, no petechiae and no mottling GENERAL SKIN EXAM: no rashes or lesions noted and turgor normal Course Vital Signs: Vital signs: Vital Signs Temperature 98.3 F 07/04/19 19:07 Pulse Rate 74 07/04/19 21:21 Respiratory Rate 18 07/04/19 21:21 Blood Pressure 142/76 07/04/19 21:21 Pulse Oximetry 97 07/04/19 21:21 MDM - Altered Mental Status MDM Narrative: Medical decision making narrative: The case was reviewed with Dr. Luci Lugo, she agrees with continuing aggressive hydration and thinks that his anion gap acidosis is likely due to dehydration and hypercalcemia. She will admit the patient to the floor and further orders and management will be determined by her. Lab Data: Attestation: I reviewed the patient's lab results. Labs: Lab Results 07/04/19 07/04/19 07/04/19 Range/Units 18:46 18:46 18:46 WBC 11.5 H (4.0-10.0) 10^3/ uL RBC 4.05 L (4.1-5.3) 10^6/u L Hgb 12.6 (11.7-16.6) g/dL Hct 39.0 L (42.0-52.0) % MCV 96.3 H (80-94) fL MCH 31.1 (28.0-34.0) pg MCHC 32.3 (30.0-36.0) g/dL RDW 16.3 H (12.1-15.1) % Plt Count 291 (130-400) 10^3/c mm MPV 10.9 H (7.4-10.4) fL Neut % (Auto) 70.9 % Lymph % (Auto) 16.4 % Coos % (Auto) 11.9 % Eos % (Auto) 0.1 % Baso % (Auto) 0.3 % Neut # (Auto) 8.1 H (1.8-7.7) 10^3/u L Lymph # (Auto) 1.9 (0.8-4.8) 10^3/u L Coos # (Auto) 1.4 H (0.2-0.9) 10^3/u L Eos # (Auto) 0.0 (0.0-0.8) 10^3/u L Baso # (Auto) 0.0 (0.0-0.1) 10^3/u L Nucleated RBC % (a uto) 0 % Nucleated RBCs # 0.0 /100WBC PT 14.80 H (10.5-13.3) SECO NDS INR 1.12 (0.8-1.2) Specimen Type Sample Site ABG pH (7.35-7.45) ABG pCO2 (35-45) mmHg ABG pO2 (80.0-100.0) mmH g ABG HCO3 (22-26) mmol/L ABG Base Excess (-2.0-2.0) mmol/ L Barn[place] Test Hematocrit (42-52) % FiO2 % Precipitator Operator ID Sodium 134 L (136-145) mmol/L Potassium 4.5 (3.5-5.1) mmol/L Chloride 95 L (98-107) mmol/L Carbon Dioxide 16 L (22-29) mmol/L Anion Gap 27.5 H (5-19) BUN 12 (6-20) mg/dL Creatinine 0.7 (0.7-1.2) mg/dL GFR Calculation 116.7 (90-130) mL/min Glucose 93 (74-109) mg/dL Lactic Acid (0.5-2.2) mmol/L Calcium 16.5 H* (8.6-10.0) mg/Dl Magnesium 1.6 L (1.7-2.3) mg/dL Total Bilirubin 0.9 (0.15-1.2) mg/dL AST 94 H (0-40) U/L ALT 58 H (0-41) U/L Alkaline Phosphata se 176 H (40-130) IU/L Ammonia (16-60) umol/L Troponin T Baselin e (0-15) ng/mL Total Protein 8.7 (6.6-8.7) g/dL Albumin 3.8 (3.5-5.2) g/dL Globulin 4.9 H (1.3-4.6) g/dL Lipase 29 (13-60) U/L Urine Color (Yellow) Urine Appearance (CLEAR) Urine pH (5-7) Ur Specific Gravit y (1.005-1.030) Urine Protein (Negative) Urine Glucose (UA) (Normal) Urine Ketones (Negative) Urine Occult Blood (Negative) Urine Nitrate (Negative) Urine Bilirubin (NEGATIVE) Urine Urobilinogen (Negative) mg/dL Ur Leukocyte Jessie ase (Negative) Urine RBC (0-2) /hpf Urine WBC (0-5) /hpf Ur Squamous Epith Cells (0-5) Urine Bacteria (NONE) Hyaline Casts Urine Mucus Salicylates (3-10) mg/dL Acetaminophen (10-30) ug/mL Ethyl Alcohol < 10 (0-10) mg/dL Influenza Type A A g (Negative) POC Influenza B Ag (Negative) 07/04/19 07/04/19 07/04/19 Range/Units 18:46 19:33 19:40 WBC (4.0-10.0) 10^3/ uL RBC (4.1-5.3) 10^6/u L Hgb (11.7-16.6) g/dL Hct (42.0-52.0) % MCV (80-94) fL MCH (28.0-34.0) pg MCHC (30.0-36.0) g/dL RDW (12.1-15.1) % Plt Count (130-400) 10^3/c mm MPV (7.4-10.4) fL Neut % (Auto) % Lymph % (Auto) % Coos % (Auto) % Eos % (Auto) % Baso % (Auto) % Neut # (Auto) (1.8-7.7) 10^3/u L Lymph # (Auto) (0.8-4.8) 10^3/u L Coos # (Auto) (0.2-0.9) 10^3/u L Eos # (Auto) (0.0-0.8) 10^3/u L Baso # (Auto) (0.0-0.1) 10^3/u L Nucleated RBC % (a uto) % Nucleated RBCs # /100WBC PT (10.5-13.3) SECO NDS INR (0.8-1.2) Specimen Type Arterial Sample Site Radial, right ABG pH 7.26 L (7.35-7.45) ABG pCO2 34.4 L (35-45) mmHg ABG pO2 67.5 L (80.0-100.0) mmH g ABG HCO3 15.4 L (22-26) mmol/L ABG Base Excess -10.7 L (-2.0-2.0) mmol/ L Brandon Test Pos Hematocrit 42.7 (42-52) % FiO2 21.0 % Precipitator Operator ID harkr Sodium (136-145) mmol/L Potassium (3.5-5.1) mmol/L Chloride (98-107) mmol/L Carbon Dioxide (22-29) mmol/L Anion Gap (5-19) BUN (6-20) mg/dL Creatinine (0.7-1.2) mg/dL GFR Calculation (90-130) mL/min Glucose (74-109) mg/dL Lactic Acid 13.0 H* (0.5-2.2) mmol/L Calcium (8.6-10.0) mg/Dl Magnesium (1.7-2.3) mg/dL Total Bilirubin (0.15-1.2) mg/dL AST (0-40) U/L ALT (0-41) U/L Alkaline Phosphata se (40-130) IU/L Ammonia (16-60) umol/L Troponin T Baselin e 11 (0-15) ng/mL Total Protein (6.6-8.7) g/dL Albumin (3.5-5.2) g/dL Globulin (1.3-4.6) g/dL Lipase (13-60) U/L Urine Color (Yellow) Urine Appearance (CLEAR) Urine pH (5-7) Ur Specific Gravit y (1.005-1.030) Urine Protein (Negative) Urine Glucose (UA) (Normal) Urine Ketones (Negative) Urine Occult Blood (Negative) Urine Nitrate (Negative) Urine Bilirubin (NEGATIVE) Urine Urobilinogen (Negative) mg/dL Ur Leukocyte Jessie ase (Negative) Urine RBC (0-2) /hpf Urine WBC (0-5) /hpf Ur Squamous Epith Cells (0-5) Urine Bacteria (NONE) Hyaline Casts Urine Mucus Salicylates (3-10) mg/dL Acetaminophen (10-30) ug/mL Ethyl Alcohol (0-10) mg/dL Influenza Type A A g (Negative) POC Influenza B Ag (Negative) 07/04/19 07/04/19 07/04/19 Range/Units 19:40 19:41 20:00 WBC (4.0-10.0) 10^3/ uL RBC (4.1-5.3) 10^6/u L Hgb (11.7-16.6) g/dL Hct (42.0-52.0) % MCV (80-94) fL MCH (28.0-34.0) pg MCHC (30.0-36.0) g/dL RDW (12.1-15.1) % Plt Count (130-400) 10^3/c mm MPV (7.4-10.4) fL Neut % (Auto) % Lymph % (Auto) % Coos % (Auto) % Eos % (Auto) % Baso % (Auto) % Neut # (Auto) (1.8-7.7) 10^3/u L Lymph # (Auto) (0.8-4.8) 10^3/u L Coos # (Auto) (0.2-0.9) 10^3/u L Eos # (Auto) (0.0-0.8) 10^3/u L Baso # (Auto) (0.0-0.1) 10^3/u L Nucleated RBC % (a uto) % Nucleated RBCs # /100WBC PT (10.5-13.3) SECO NDS INR (0.8-1.2) Specimen Type Sample Site ABG pH (7.35-7.45) ABG pCO2 (35-45) mmHg ABG pO2 (80.0-100.0) mmH g ABG HCO3 (22-26) mmol/L ABG Base Excess (-2.0-2.0) mmol/ L Brandon Test Hematocrit (42-52) % FiO2 % Precipitator Operator ID Sodium (136-145) mmol/L Potassium (3.5-5.1) mmol/L Chloride (98-107) mmol/L Carbon Dioxide (22-29) mmol/L Anion Gap (5-19) BUN (6-20) mg/dL Creatinine (0.7-1.2) mg/dL GFR Calculation (90-130) mL/min Glucose (74-109) mg/dL Lactic Acid (0.5-2.2) mmol/L Calcium (8.6-10.0) mg/Dl Magnesium (1.7-2.3) mg/dL Total Bilirubin (0.15-1.2) mg/dL AST (0-40) U/L ALT (0-41) U/L Alkaline Phosphata se (40-130) IU/L Ammonia 79 H (16-60) umol/L Troponin T Baselin e (0-15) ng/mL Total Protein (6.6-8.7) g/dL Albumin (3.5-5.2) g/dL Globulin (1.3-4.6) g/dL Lipase (13-60) U/L Urine Color Yellow (Yellow) Urine Appearance Clear (CLEAR) Urine pH 5 (5-7) Ur Specific Gravit y 1.025 (1.005-1.030) Urine Protein Neg (Negative) Urine Glucose (UA) Norm (Normal) Urine Ketones 1+ H (Negative) Urine Occult Blood Neg (Negative) Urine Nitrate Negative (Negative) Urine Bilirubin Neg (NEGATIVE) Urine Urobilinogen Norm (Negative) mg/dL Ur Leukocyte Jessie ase Negative (Negative) Urine RBC None (0-2) /hpf Urine WBC 0-4 H (0-5) /hpf Ur Squamous Epith Cells None (0-5) Urine Bacteria Trace (NONE) Hyaline Casts 0-4 H Urine Mucus 1+ Salicylates < 0.3 L (3-10) mg/dL Acetaminophen < 5.0 L (10-30) ug/mL Ethyl Alcohol (0-10) mg/dL Influenza Type A A g (Negative) POC Influenza B Ag (Negative) 07/04/19 Range/Units 20:05 WBC (4.0-10.0) 10^3/ uL RBC (4.1-5.3) 10^6/u L Hgb (11.7-16.6) g/dL Hct (42.0-52.0) % MCV (80-94) fL MCH (28.0-34.0) pg MCHC (30.0-36.0) g/dL RDW (12.1-15.1) % Plt Count (130-400) 10^3/c mm MPV (7.4-10.4) fL Neut % (Auto) % Lymph % (Auto) % Coos % (Auto) % Eos % (Auto) % Baso % (Auto) % Neut # (Auto) (1.8-7.7) 10^3/u L Lymph # (Auto) (0.8-4.8) 10^3/u L Coos # (Auto) (0.2-0.9) 10^3/u L Eos # (Auto) (0.0-0.8) 10^3/u L Baso # (Auto) (0.0-0.1) 10^3/u L Nucleated RBC % (a uto) % Nucleated RBCs # /100WBC PT (10.5-13.3) SECO NDS INR (0.8-1.2) Specimen Type Sample Site ABG pH (7.35-7.45) ABG pCO2 (35-45) mmHg ABG pO2 (80.0-100.0) mmH g ABG HCO3 (22-26) mmol/L ABG Base Excess (-2.0-2.0) mmol/ L Brandon Test Hematocrit (42-52) % FiO2 % Precipitator Operator ID Sodium (136-145) mmol/L Potassium (3.5-5.1) mmol/L Chloride (98-107) mmol/L Carbon Dioxide (22-29) mmol/L Anion Gap (5-19) BUN (6-20) mg/dL Creatinine (0.7-1.2) mg/dL GFR Calculation (90-130) mL/min Glucose (74-109) mg/dL Lactic Acid (0.5-2.2) mmol/L Calcium (8.6-10.0) mg/Dl Magnesium (1.7-2.3) mg/dL Total Bilirubin (0.15-1.2) mg/dL AST (0-40) U/L ALT (0-41) U/L Alkaline Phosphata se (40-130) IU/L Ammonia (16-60) umol/L Troponin T Baselin e (0-15) ng/mL Total Protein (6.6-8.7) g/dL Albumin (3.5-5.2) g/dL Globulin (1.3-4.6) g/dL Lipase (13-60) U/L Urine Color (Yellow) Urine Appearance (CLEAR) Urine pH (5-7) Ur Specific Gravit y (1.005-1.030) Urine Protein (Negative) Urine Glucose (UA) (Normal) Urine Ketones (Negative) Urine Occult Blood (Negative) Urine Nitrate (Negative) Urine Bilirubin (NEGATIVE) Urine Urobilinogen (Negative) mg/dL Ur Leukocyte Jessie ase (Negative) Urine RBC (0-2) /hpf Urine WBC (0-5) /hpf Ur Squamous Epith Cells (0-5) Urine Bacteria (NONE) Hyaline Casts Urine Mucus Salicylates (3-10) mg/dL Acetaminophen (10-30) ug/mL Ethyl Alcohol (0-10) mg/dL Influenza Type A A g Negative (Negative) POC Influenza B Ag Negative (Negative) Imaging Data^: CT Head: Radiologist's impression: [address] [address] [address] Scan Report Signed Patient: Tapan Gonzalez #: [id number] : 1960Acct#:[id number] Age/Sex: 58 / MADM Date: 07/04/19 Loc: [facility]/Bed: Attending Dr: Ordering Provider/Ordering MD: Avis Beaver DO Date of Service: 07/04/19 Procedure(s): CT head wo con* [id number] Accession Number(s): [id number] Report Number: [id number] PROCEDURE INFORMATION: Exam: CT Head Without Contrast Exam date and time: 07/04/2019 7:34 PM Age: 58 years old Clinical indication: Altered mental status/memory loss; Patient HX: Ams/ poss over [facility]/ fall x2 in past 24 hours; Additional info: Garcia/ams TECHNIQUE: Imaging protocol: Computed tomography of the head without contrast. Total DLP: 875.43 mGy-cm Radiation optimization: All CT scans at this facility use at least one of these dose optimization techniques: automated exposure control; mA and/or kV adjustment per patient size (includes targeted exams where dose is matched to clinical indication); or iterative reconstruction. COMPARISON: CT head wo con* [id number] 06/11/2019 3:51 PM FINDINGS: Brain: Moderate cortical volume loss. No abnormal brain attenuation. No intracranial hemorrhage. Ventricles: Normal. No ventriculomegaly. Bones/joints: Multiple lytic lesions in the calvarium and sclerotic reason in the right frontal calvarium are unchanged. Sinuses: Visualized sinuses are unremarkable. No fluid levels. Mastoid air cells: Visualized mastoid air cells are well aerated. Soft tissues: Unremarkable. CT/CT head wo con* [id number] IMPRESSION: 1. No acute intracranial abnormality. 2. 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 Radiation Dose CTDIVOL = (mGy): DLP = 875.43 (mGy-cm) Dictated By:Silas Agee Signed By:Lian Agee Date/Time:07/04/192048 DD/ 47 EKG Data^: EKG 1: Attestation: I personally reviewed and interpreted this EKG as follows: (EKG performed and read at 1924-sinus tachycardia at 105 beats a minute, no acute ST- T wave changes, otherwise unremarkable.) EKG 2: Attestation: I personally reviewed and interpreted this EKG as follows: (EKG performed and read at 2156?normal sinus rhythm at 100 beats a minute, no acute ST or T wave changes, otherwise unremarkable.) Discharge Plan Discharge Prescriptions: No Action lidocaine 5 % adhesive patch,medicated 1 patch TOPICAL DAILY 30 Days Qty: 30 RF: 0 sennosides-docusate sodium 8.6-50 mg Tablet 1 tab PO BID 30 Days Qty: 60 RF: 0 morphine 15 mg Tablet Extended Release 15 mg PO BID 30 Days Qty: 60 RF: 0 calcitonin (salmon) 200 unit/actuation spray,non-aerosol 1 spray intranasal (ALT) DAILY Qty: 3.7 RF: 0 Coding Level of Care Code ED Special Needs Teacher for Chg Fwd Exam Problem Focused The documentation recorded by the Finn lewis Carmen, accurately reflects the service I personally performed and the decisions made by Saranya maria Eli N Jul 04, 2019 19:06
[2019-07-04 19:44] LABS: ABG PCO2 34.4 mmHg (35-45); ABG PH Result 7.26 (7.35-7.45); Arterial Blood Gas Hematocrit 42.7 % (42-52); Base Excess ABG -10.7 mmol/L (-2.0-2.0); Blood Gas Allen Test Pos; Blood Gas Sample Type Arterial; HCO3 ABG 15.4 mmol/L (22-26); PO2 ABG 67.5 mmHg (80.0-100.0)
[2019-07-04 19:45] LABS: Blood Gas Sample Site Radial, right
[2019-07-04 19:45] LABS: Basophils % 0.3 %; Eosinophils % 0.1 %; Hemoglobin 12.6 g/dL (11.7-16.6); Lymphocytes # 1.9 10^3/uL (0.8-4.8); Lymphocytes % 16.4 %; Mean Corpuscular HGB Conc 32.3 g/dL (30.0-36.0); Mean Corpuscular Hemoglobin 31.1 pg (28.0-34.0); Mean Corpuscular Volume 96.3 fL (80-94); Mean Platelet Volume 10.9 fL (7.4-10.4); Monocytes # 1.4 10^3/uL (0.2-0.9); Monocytes % 11.9 %; Neutrophils # 8.1 10^3/uL (1.8-7.7); Neutrophils % 70.9 %; Nucleated Red Blood Cells % 0 %; Platelet Count 291 10^3/cmm (130-400); Red Blood Count 4.05 10^6/uL (4.1-5.3); Red Cell Distribution Width 16.3 % (12.1-15.1); White Blood Count 11.5 10^3/uL (4.0-10.0)
[2019-07-04 19:51] LABS: INR 1.12 (0.8-1.2)
[2019-07-04 19:52] LABS: Alanine Aminotransferase 58 U/L (0-41); Albumin Level 3.8 g/dL (3.5-5.2); Alkaline Phosphatase 176 IU/L (40-130); Anion Gap 27.5 (5-19); Aspartate Amino Transferase 94 U/L (0-40); Blood Urea Nitrogen 12 mg/dL (6-20); Carbon Dioxide 16 mmol/L (22-29); Chloride 95 mmol/L (98-107); Globulin 4.9 g/dL (1.3-4.6); Glomerular Filtration Rate 116.7 mL/min (90-130); Glucose 93 mg/dL (74-109); Lipase 29 U/L (13-60); Magnesium 1.6 mg/dL (1.7-2.3); Potassium 4.5 mmol/L (3.5-5.1); Sodium 134 mmol/L (136-145); Total Bilirubin 0.9 mg/dL (0.15-1.2); Total Protein 8.7 g/dL (6.6-8.7)
[2019-07-04] MEDS: sodium chloride 0.9% 1,000 ML 100 ML IV (19:55)
[2019-07-04] MEDS: naloxone 0.4 mg/ml SDV (19:55)
[2019-07-04 19:57] LABS: Troponin(5th) Baseline 11 ng/mL (0-15)
[2019-07-04 20:06] LABS: Alcohol Level < 10 mg/dL (0-10); Calcium 16.5 mg/Dl (8.6-10.0)
[2019-07-04 20:24] LABS: Bilirubin Urine Neg (NEGATIVE); Blood Urine Neg (Negative); Glucose Urine UA Norm (Normal); Ketones Urine 1+ (Negative); Leukocyte Esterase Urine Negative (Negative); Nitrate Urine Negative (Negative); Protein Urine Neg (Negative); Specific Gravity, Urine 1.025 (1.005-1.030); Urine Appearance Clear (CLEAR); Urine Color Yellow (Yellow); Urobilinogen Urine Norm (Negative); pH Urine 5 (5-7)
[2019-07-04 20:25] LABS: WBC Urine 0-4 /hpf (0-5)
[2019-07-04 20:26] LABS: Add Urine Culture? No; Bacteria Urine TRACE; Hyaline Casts Urine 0-4; Mucus Urine 1+
[2019-07-04 20:38] LABS: Influenza A by IFA Negative (Negative); Influenza B by IFA Negative (Negative)
[2019-07-04 20:53] LABS: Ammonia 79 umol/L (16-60)
[2019-07-04 21:14] LABS: Acetaminophen < 5.0 ug/mL (10-30); Salicylate < 0.3 mg/dL (3-10)
--- NOTE | 2019-07-04 21:14 | ECG_ITS ---
Measurements Intervals [place] Rate: 108 P: 68 WA: 156 QRS: 68 QRSD: 84 T: 57 QT: 314 QTc: 421 SINUS TACHYCARDIA NONSPECIFIC T-WAVE ABNORMALITY ABNORMAL RHYTHM ECG Compared to ECG 06/04/2019 21:21:24 Sinus rhythm no longer present T-wave abnormality still present Electronically Signed On 07-05-2019 22:26:09 PACKAGE LINE OPERATOR by Marni Sorensen M.D. [email or web address]
[2019-07-04 21:21] VITALS: BP 142/76; PULSE 74; RESP 18; O2SAT 97
[2019-07-04 21:31] LABS: Reflex Lactate Order Y
[2019-07-04 22:00] VITALS: BP 124/70; PULSE 104; RESP 16; O2SAT 94
[2019-07-04 22:03] VITALS: BP 118/68; BP 119/69; BP 139/78; PULSE 100; PULSE 104; PULSE 107
[2019-07-04 22:15] VITALS: BP 128/75; PULSE 82; RESP 18; O2SAT 94
--- NOTE | 2019-07-04 22:42 | PM.HP ---
Providers/Chief Complaint Admitting Physician: Flor Castellanos MD Primary Care Provider: Tressa Astorga Chief Complaint: AMS History of Present Illness Tapan Gonzalez is a 58 year old male with PMHx of metastatic non-small cell lung cancer with extensive bony metastasis, hypercalcemia of malignancy, prior history of IV substance abuse, former smoker presents from [place] for evaluation of noted decreased responsiveness earlier this afternoon. Patient is very well-known to me from previous admission including earlier this month when he was admitted for hypercalcemia of malignancy. Patient has a very high pain requirement due to his extensive bony metastasis. He is pending initiation of palliative radiation scheduled for tomorrow at 9 AM and has been following up with Dr. Hammer. His is present at bedside and is able to provide some history as patient is very somnolent during my assessment in the ER. Patient reportedly received Narcan given by EMS due to concern for possible opiate overdose, and he received a second dose on his arrival to the ER due to increased lethargy. There was some mild improvement in his mental status thereafter but he still quite lethargic. He is arousable though mumbles his words and is very difficult to engage in conversation. states that she was with him earlier this morning and at lunchtime and assisted him to the bathroom but due to patient's generalized weakness he ended up falling at least twice. Per his lab work today he is calcium is 16.5, CBC is within normal limits, renal function is also normal, sodium is 134, potassium is 4.5, magnesium is 1.6, lactate is 13, anion gap is 27.5, urinalysis is negative for infection, CT head is unremarkable for any acute findings, vital signs are stable and he is currently on room air, ABG shows acidosis with hypoxia. Given his hypercalcemia and need for aggressive IV fluid hydration and monitoring of neurological status admission has been requested. I have requested that he be placed in a room close to the nursing station. So far he has received 2 L normal saline boluses. Review of Systems General: Reports: other (obtained from at bedside due to patient's somnolence) Const: Reports: change in appetite (decreased appetite), change in weight (weight loss) and fatigue; Denies: fever or chills Eyes: Denies: change in vision ENMT: Reports: dry mouth Card: Denies: chest pain, swelling of feet/ankles or lightheadedness Resp: Denies: shortness of breath GI: Denies: abdominal pain, nausea, vomiting, vomiting blood or blood in stool : Denies: painful urination or urinary frequency Musc: Denies: back pain Skin/Breast: Denies: rash Neuro: Reports: weakness in extremities; Denies: numbness in extremities Psych: Denies: anxiety Medications/Allergies Allergies Allergy/AdvReac Type Severity Reaction Status Date / Time No Known Allergies Allergy Verified 07/04/19 19:17 Additional Medication Information Additional Medication Information: -pending confirmation of med rec PFSH Acute PFSH: Statuses (acute, chronic, etc) shown below reflect problem list status as previously entered and may not be historically accurate Medical History Bone metastases (Acute) -Extensive bony metastasis per imaging done during most recent admission -Pain control as needed; high pain requirement -High risk for pathological fractures -Follow-up with oncology Fibrous dysplasia (monostotic), left forearm (Acute) Fracture of left foot (Acute) Hypercalcemia of malignancy (Acute) -Improving with IV fluid hydration, calcitonin and received pamidronate -We will likely need continuation of bisphosphonates -Corrected calcium level is 11.6 -Continue bowel regimen IV drug abuse (Acute) -Has history of IV substance abuse; abstinence x 5 to 6 years 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 Hammer as soon as next available appointment -Pending results of molecular studies for decision on possible immunotherapy -Patient not ready for hospice at this time per goals of care discussion Surgical History H/O shoulder surgery (Acute) History of dental surgery (Acute) Family History Denies family history of CAD (coronary artery disease) Bleeding disorder Cancer Social History Smoking and tobacco status: unknown if ever smoked Quit status (tobacco): has quit using tobacco Year quit tobacco: 2018 Alcohol intake: former Current gender identity: Male Vitals/I&O/Wt Last Vital Signs Temp 98.3 F 07/04/19 19:07 Pulse 82 07/04/19 22:15 Resp 18 07/04/19 22:15 BP 128/75 07/04/19 22:15 Pulse Ox 94 07/04/19 22:15 Weight last 48 hrs Weight 81.647 kg Physical Exam Const: COMMON NORMALS: no apparent distress GENERAL APPEARANCE: other (very restless) NUTRITIONAL APPEARANCE: thin ORIENTATION/CONSCIOUSNESS: Yes awake and Yes lethargic HENMT: COMMON NORMALS: normocephalic, head/scalp atraumatic, hearing grossly normal bilaterally and moist oral mucous membranes HEAD & SCALP: normocephalic and atraumatic Eye: COMMON NORMALS: PERRL, EOMs intact bilaterally and conjunctivae normal CONJUNCTIVA: Yes conjunctivae normal PUPIL: Yes PERRL Neck/C-Spine: COMMON NORMALS: full ROM GENERAL: Yes normal visual inspection and Yes trachea midline Resp: COMMON NORMALS: normal respiratory effort, no retractions, no use of accessory muscles and clear to auscultation bilaterally EFFORT & INSPECTION: Yes symmetric chest movement and No tachypneic AUSCULTATION: diminished lung sounds bilateral Cardio: COMMON NORMALS: regular rate, regular rhythm, S1 normal heart sound, S2 normal heart sound and no murmurs RATE: regular rate RHYTHM: regular rhythm HEART SOUNDS: S1 normal and S2 normal GI: COMMON NORMALS: normal to inspection, nondistended, normoactive bowel sounds, soft to palpation and non-tender PALPATION: Yes soft Extremity: COMMON NORMALS: normal to inspection, full ROM and no clubbing, cyanosis or edema; negative for no pedal edema Neuro: COMMON NORMALS: moves all extremities, no focal motor deficits and no sensory deficits noted SENSORIUM/ORIENTATION: Yes somnolent Psych: SPEECH: Yes slurred THOUGHT PROCESS: confused Skin: COMMON NORMALS: no rashes or lesions noted, no jaundice, no petechiae and no mottling GENERAL SKIN EXAM: no rashes or lesions noted Data : 07/04/19 18:46 07/04/19 18:46 Micro: Microbiology 07/04/19 19:40 Blood Culture - Preliminary Blood SPECIMEN COLLECTED 07/04/19 19:40 Blood Culture - Preliminary Blood SPECIMEN COLLECTED A&P Assessment and plan (1) Hypercalcemia of malignancy: -very high calcium noted on chemistry -start on aggressive IVF hydration, calcitonin -will likely need bisphosphonates -bowel regimen -fall precautions -neurochecks -continue to monitor Ca Status: Acute Code(s): E83.52 - Hypercalcemia (2) Bone metastases: -has extensive bony metastases including of calvarium per imaging -plan to begin palliative radiation therapy tomorrow AM; will need to follow up on this tomorrow -high risk for pathological fractures, fall precautions Status: Acute Code(s): C79.51 - Secondary malignant neoplasm of bone (3) Weakness: -has been quite deconditioned for some time given ongoing hypercalcemia of malignancy and hospitalizations -PT evaluation when mental status improves Status: Acute Code(s): R53.1 - Weakness (4) Stage IV squamous cell carcinoma of lung: Status: Acute Qualifiers: Laterality: right Qualified Code(s): C34.91 - Malignant neoplasm of unspecified part of right bronchus or lung Code(s): C34.90 - Malignant neoplasm of unspecified part of unspecified bronchus or lung Additional A&P Information -hx of IV substance abuse; abstinence x 5-6 yrs -former smoker -increased anion gap metabolic acidosis, lactic acidosis, likely due to dehydration: continue IVF hydration. ABG noted, supplemental oxygen as needed, no apparent infectious etiology, repeat labs in AM -diet when mental status improves; NPO for now -DVT ppx with Lovenox -Dispo: return to [facility] -Code status: DNR/DNI Attestations Medical Necessity Statement*: Tapan Gonzalez's hospital stay will require greater than 2 midnights for management of severe hypercalcemia of malignancy requiring aggressive IV fluid hydration and close monitoring of calcium as well as neurological status given current somnolence. Time Spent in Patient Care: Greater than 35 minutes (>than 50% of time spent in counselling and/or direct pt care on unit). Coding Level of Care Code Acute Clinical Care Manager for Chg Fwd Exam Problem Focused Diagnoses Hypercalcemia of malignancy E83.52 Bone metastases C79.51 Weakness R53.1 Stage IV squamous cell carcinoma of lung C34.91 Laterality: right
[2019-07-04 22:44] LABS: Amphetamines Screen Urine Negative (Negative); Barbiturates Screen Urine Negative (Negative); Benzodiazepines Screen Urine Negative (Negative); Cocaine Screen Urine Negative (Negative); PCP Screen Urine Negative (Negative); THC Screen Urine Negative (Negative)
[2019-07-04 22:51] LABS: Troponin 5 2HR 7.74 ng/mL (0-15)
[2019-07-04 22:56] LABS: Troponin 5 2HR Delta -3.26 ABS# (0-10)
[2019-07-04 23:00] LABS: Lactic Acid level (Lactate) 9.8 mmol/L (0.5-2.2)
[2019-07-04 23:34] VITALS: BP 123/68; PULSE 102; RESP 18; TEMP 36.9; O2SAT 94
[2019-07-05] VITALS (7 sets, daily range): BP systolic 119–135; BP diastolic 54–69; PULSE 86–110; RESP 16–20; TEMP 36.6–36.9; O2SAT 92–95
[2019-07-05] MEDS: enoxaparin 40 mg/0.4 mL Syringe SUBCUT ×2 (00:16→23:42)
[2019-07-05] MEDS: sodium chloride 0.9% 1,000 ML 150 ML IV ×4 (00:18→23:42)
[2019-07-05 01:31] LABS: Troponin 5 6HR 8.84 ng/L (0-15)
[2019-07-05 01:35] LABS: Troponin 5 6HR Delta -2.16 ng/L (0-12)
[2019-07-05 03:38] LABS: Basophils % 0.2 %; Hematocrit 34.5 % (42.0-52.0); Hemoglobin 10.9 g/dL (11.7-16.6); Lymphocytes # 1.4 10^3/uL (0.8-4.8); Lymphocytes % 13.1 %; Mean Corpuscular HGB Conc 31.6 g/dL (30.0-36.0); Mean Corpuscular Hemoglobin 31.4 pg (28.0-34.0); Mean Corpuscular Volume 99.4 fL (80-94); Mean Platelet Volume 10.5 fL (7.4-10.4); Monocytes # 1.1 10^3/uL (0.2-0.9); Monocytes % 10.6 %; Neutrophils % 75.7 %; Nucleated Red Blood Cells % 0 %; Platelet Count 241 10^3/cmm (130-400); Red Blood Count 3.47 10^6/uL (4.1-5.3); Red Cell Distribution Width 16.5 % (12.1-15.1); White Blood Count 10.6 10^3/uL (4.0-10.0)
[2019-07-05 03:48] LABS: Anion Gap 21.5 (5-19); Blood Urea Nitrogen 9 mg/dL (6-20); Carbon Dioxide 17 mmol/L (22-29); Chloride 101 mmol/L (98-107); Glucose 82 mg/dL (74-109); Potassium 4.5 mmol/L (3.5-5.1); Sodium 135 mmol/L (136-145)
[2019-07-05 03:51] LABS: Calcium 13.7 mg/Dl (8.6-10.0)
[2019-07-05 03:52] LABS: Lactic Acid 8.9 mmol/L (0.5-2.2)
[2019-07-05] MEDS: morphine ER (12 HR) 15 mg Tablet PO (08:59)
[2019-07-05] MEDS: sennosides-docusate Tablet 1 TAB PO (08:59)
[2019-07-05] MEDS: lidocaine 5% Patch 1 PATCH TOPICAL (09:00)
--- NOTE | 2019-07-05 12:09 | PC.CHAP ---
Pastoral Care Encounter/Spiritual Assessment Type of Contact [] Declined fruit loader visit [] Patient/Family/Request visit [] Outpatient visit [] Follow-up visit [] Physician referral [] Code/Alert [x] Routine visit [] Staff referral [] Actively dying [x] Patient sleeping [] Family support [] [] Out of room [] Palliative care [] [] Receiving care in room [] Pre-surgical visit [] Trauma [] Long length of stay [] ICU visit [] Other: Relational/Emotional Strength [] Patient feels connected with others/family/visitors/staff [] Distress [] Loneliness/isolation [] Abandonment Spirituality of Patient [] Person of [place] [] Attends [employer] [place] [] Believes in Prayer [] Reads Bible or Restoration materials [] There are Spiritual issues to be addressed Polisher [employer] S[employer] Interventions [] Prayer [] Active listening [] Non-anxious presence [] Spiritual/emotional support [] Crisis/trauma care [] Spiritual counseling [] Bereavement support [] Provided bereavement packet [] Provided Bible/devotional materials [] Provided toy/stuffed animal, coloring book to patient or family member [] Completed spiritual assessment [] Provided Communion [] Anointing/[place] [] Salvation [] Other: Impact on Illness or Injury [] Angry [] Fearful [] Anxious [] Often cries [] Exhaustion [] Unable to work [] Unable to attend roman catholic [] Unable to walk/stand [] Unable to read [] Unable to drive [] Unable to eat/drink [] Unable to sleep [] Unable to be with family [] Other: Summary Time spent with patient
[2019-07-05] MEDS: calcitonin,salmon 200 unit/mL SDV 2mL 100 UNIT SUBCUT ×2 (12:40→17:48)
--- NOTE | 2019-07-05 15:23 | PM.PN ---
Subjective Subjective: Interval history: Patient seems to be getting more alert and awake. He is communicating somewhat those now. He is also having a little bit more pain at this time. No chest pain or shortness of breath though. Vitals/I&O/Wt Last Vital Signs Temp 97.9 F 07/05/19 11:21 Pulse 100 07/05/19 14:36 Resp 16 07/05/19 11:21 BP 129/69 07/05/19 11:21 Pulse Ox 93 07/05/19 14:36 07/05/19 07/05/19 07/05/19 06:59 14:59 22:59 Intake Total 1000.0 / 1000.0 562.5 / 562.5 Output Total 920 / 920 120 / 120 Balance 80.0 / 80.0 442.5 / 442.5 Weight last 48 hrs Weight 180 lb Physical Exam Narrative: EXAM NARRATIVE: General: No acute distress, Alert. Not well nourished. Heart: Regular rate and rhythm. No murmurs, rubs or gallops. Normal capillary refill. Lungs: Clear to auscultation. No wheezes, rhonchi or rales. Abdomen: Positive bowel sounds. Non-tender, non-distended. No hepatosplenomegaly. No gaurding. Extremities: No clubbing, cyanosis, or edema. Negative Elvin's Data Micro: Micro: Microbiology 07/04/19 19:40 Blood Culture - Pr eliminary Blood SPECIMEN [facility] 07/04/19 19:40 Blood Culture - Pr eliminary Blood SPECIMEN [facility] A&P Assessment and plan (1) Hypercalcemia of malignancy: This is improving with a calcium down to 13 this afternoon from a high of 16. He is becoming more alert. We will continue with IV fluids and calcitonin. Recheck labs in the morning. Likely discharge tomorrow. Status: Acute Code(s): E83.52 - Hypercalcemia (2) Bone metastases: Restart some immediate release morphine for breakthrough pain. Will need to follow-up with oncology upon discharge. Status: Acute Code(s): C79.51 - Secondary malignant neoplasm of bone (3) Stage IV squamous cell carcinoma of lung: Status: Acute Qualifiers: Laterality: right Qualified Code(s): C34.91 - Malignant neoplasm of unspecified part of right bronchus or lung Code(s): C34.90 - Malignant neoplasm of unspecified part of unspecified bronchus or lung Attestations Medical Necessity Statement*: 58-year-old gentleman with metastatic cancer and hypercalcemia requiring continued inpatient IV treatments and monitoring. Coding Level of Care Code Acute Leather Case Finisher for g Fwd Diagnoses Hypercalcemia of malignancy E83.52 Bone metastases C79.51 Stage IV squamous cell carcinoma of lung C34.91 Laterality: right
[2019-07-05 18:41] LABS: Blood Gas CCRB Time 2140
[2019-07-06] VITALS (7 sets, daily range): BP systolic 110–136; BP diastolic 57–87; PULSE 78–101; RESP 18; TEMP 36.8–36.9; O2SAT 94–97
[2019-07-06 08:16] LABS: Basophils % 0.3 %; Hematocrit 35.1 % (42.0-52.0); Hemoglobin 11.6 g/dL (11.7-16.6); Lymphocytes # 1.8 10^3/uL (0.8-4.8); Mean Corpuscular Hemoglobin 31.5 pg (28.0-34.0); Mean Corpuscular Volume 95.4 fL (80-94); Mean Platelet Volume 10.6 fL (7.4-10.4); Monocytes % 9.2 %; Neutrophils # 7.9 10^3/uL (1.8-7.7); Neutrophils % 73.1 %; Nucleated Red Blood Cells % 0 %; Platelet Count 261 10^3/cmm (130-400); Red Blood Count 3.68 10^6/uL (4.1-5.3); Red Cell Distribution Width 16.6 % (12.1-15.1); White Blood Count 10.7 10^3/uL (4.0-10.0)
[2019-07-06 08:30] LABS: Alanine Aminotransferase 39 U/L (0-41); Albumin Level 3.1 g/dL (3.5-5.2); Alkaline Phosphatase 140 IU/L (40-130); Anion Gap 24.8 (5-19); Aspartate Amino Transferase 69 U/L (0-40); Blood Urea Nitrogen 6 mg/dL (6-20); Calcium 11.7 mg/Dl (8.6-10.0); Carbon Dioxide 15 mmol/L (22-29); Chloride 98 mmol/L (98-107); Globulin 4.3 g/dL (1.3-4.6); Glomerular Filtration Rate 310.1 mL/min (90-130); Glucose 74 mg/dL (74-109); Potassium 3.8 mmol/L (3.5-5.1); Sodium 134 mmol/L (136-145); Total Bilirubin 1.2 mg/dL (0.15-1.2); Total Protein 7.4 g/dL (6.6-8.7)
[2019-07-06] MEDS: sodium chloride 0.9% 1,000 ML 150 ML IV (09:18)
[2019-07-06] MEDS: calcitonin,salmon 200 unit/mL SDV 2mL 100 UNIT SUBCUT (09:18)
[2019-07-06] MEDS: lidocaine 5% Patch 1 PATCH TOPICAL (09:19)
[2019-07-06] MEDS: morphine ER (12 HR) 15 mg Tablet PO (09:24)
--- NOTE | 2019-07-06 11:35 | P.DS_ITS ---
Discharge Providers Date of Admission: 07/04/19 21:37 Date of Discharge: 07/06/19 Attending Provider at Admission: Flor Castellanos MD Attending Provider at Discharge: Macy Pandya MD Primary Care Provider: Tressa Astorga Diagnoses at Discharge Discharge Diagnosis (1) Hypercalcemia of malignancy: Status: Acute Problem details: Improved with IV fluids, calcitonin and also given Zometa 4 mg injection Discussed with oncologist, Dr. Hammer and plan for follow-up on Tuesday, will continue to follow-up with calcium levels at that time (2) Bone metastases: Status: Acute Problem details: Follow-up with Dr. Martini, radiation oncologist for radiation on Tuesday (3) Stage IV squamous cell carcinoma of lung: Status: Acute Problem details: Followed by Dr. Hammer Qualifiers: Laterality: right Qualified Code(s): C34.91 - Malignant neoplasm of unspecified part of right bronchus or lung Reason for Visit Reason for Visit: Reason For Visit: AMS Hospital Course Hospital Course: Patient was seen and evaluated in the emergency department and admitted for further evaluation and treatment due to concern for hypercalce lisa related to malignancy with altered mental status. Patient was given IV fluids given calcitonin and calcium continue to improve and on date of discharge patient was improved from admission. Discussed with patient's oncologist on date of discharge and recommendation was to give injection of Zometa 4 mg with plan for radiation oncology follow-up on Tuesday and follow-up with Dr. Hammer on Tuesday for calcium check at that time. Discharge Summary: Discharge to halfway facility Will need follow-up with Dr. Hammer on Tuesday Follow-up with Dr. Martini on Tuesday at 10 AM for radiation due to lumbar pain from metastatic disease Continue on calcitonin Follow-up of calcium levels at oncology office on Tuesday of next week Continue with immediate release morphine as needed for lumbar pain Physical Exam Const: COMMON NORMALS: oriented x3 and alert GENERAL APPEARANCE: cooperative ORIENTATION/CONSCIOUSNESS: Yes awake, Yes oriented to person, Yes oriented to place and Yes oriented to time HENMT: COMMON NORMALS: normocephalic and head/scalp atraumatic HEAD & SCALP: normocephalic and atraumatic Eye: COMMON NORMALS: PERRL PUPIL: Yes PERRL Neck/C-Spine: COMMON NORMALS: supple GENERAL: Yes normal visual inspection Resp: COMMON NORMALS: normal respiratory effort and clear to auscultation bilaterally EFFORT & INSPECTION: Yes able to speak in complete sentences AUSCULTATION: clear to auscultation bilaterally, no rhonchi and no wheezes Cardio: COMMON NORMALS: regular rate, regular rhythm and no murmurs RATE: regular rate RHYTHM: regular rhythm GI: COMMON NORMALS: soft to palpation and non-tender INSPECTION: No abdominal distension AUSCULTATION: Yes normoactive bowel sounds PALPATION: Yes soft Extremity: COMMON NORMALS: no calf tenderness Neuro: COMMON NORMALS: oriented x3, CN's II-XII intact bilaterally and moves all extremities SENSORIUM/ORIENTATION: Yes alert, Yes oriented to person, Yes oriented to place and Yes oriented to time Psych: COMMON NORMALS: mental status grossly normal Discharge Data Data Completed and Pending: Completed Studies During Hospitalization Category Date Time Status CT head wo con* 7 0450 Urgent Cat Scan 07/04/19 19:13 Completed XR chest 1V chris ble [id number] Stat Exams 07/04/19 19:13 Completed Pending at discharge Category Date Time Status Blood Culture Sta t Lab 07/04/19 19:40 Results Labs from last 24 hours 07/06/19 07/06/19 07/04/19 07:41 07:41 19:33 WBC 10.7 H RBC 3.68 L Hgb 11.6 L Hct 35.1 L MCV 95.4 H MCH 31.5 MCHC 33.0 RDW 16.6 H Plt Count 261 MPV 10.6 H Neut % (Auto) 73.1 Lymph % (Auto) 17.0 [place] % (Auto) 9.2 Eos % (Auto) 0.0 Baso % (Auto) 0.3 Neut # (Auto) 7.9 H Lymph # (Auto) 1.8 [place] # (Auto) 1.0 H Eos # (Auto) 0.0 Baso # (Auto) 0.0 Nucleated RBC % (a uto) 0 Nucleated RBCs # 0.0 O2 Delivery Device Not Reportable Mode BiPAP Not Reportable Specimen Drawn By Not Reportable Blood Gas Notified Time 2140 Sodium 134 L Potassium 3.8 Chloride 98 Carbon Dioxide 15 L Anion Gap 24.8 H BUN 6 Creatinine 0.3 L GFR Calculation 310.1 H Glucose 74 Calcium 11.7 H Total Bilirubin 1.2 AST 69 H ALT 39 Alkaline Phosphata se 140 H Total Protein 7.4 Albumin 3.1 L Globulin 4.3 Vitals: Last Vital Signs Temp 98.3 F 07/06/19 11:04 Pulse 88 07/06/19 11:04 Resp 18 07/06/19 11:04 BP 120/70 07/06/19 11:04 Pulse Ox 94 07/06/19 11:04 Discharge Plan Discharge Patient Disposition: Xfer SNF Condition: Stable Prescriptions: New morphine 15 mg Tablet 5 mg PO Q6H 5 Days Qty: 20 RF: 0 Continued lidocaine 5 % adhesive patch,medicated 1 patch TOPICAL DAILY 30 Days Qty: 30 RF: 0 sennosides-docusate sodium 8.6-50 mg Tablet 1 tab PO BID 30 Days Qty: 60 RF: 0 morphine 15 mg Tablet Extended Release 15 mg PO BID 30 Days Qty: 60 RF: 0 calcitonin (salmon) 200 unit/actuation spray,non-aerosol 1 spray intranasal (ALT) DAILY Qty: 3.7 RF: 0 Discharge Orders: Discharge Order (Routine); Ordered 07/06/19 Ordered By: Macy Pandya Referrals: Katie Hammer MD [Staff Physician] - 1-3 days Gorge Martini [Staff Physician] - 1-3 days Discharge Diet: Advance as tolerated Discharge Activity: Increase activity as tolerated and As per PT/OT instructions Activity Restrictions/Additional Instructions: Discharge back to [facility] today Increase diet and increase activity as tolerated Discussed with Dr. Hammer on date of discharge and plan for follow-up on Tuesday with recheck calcium levels at that time Discussed with radiation oncology, Dr. Martini's office, plan for an appointment on Tuesday at 10 AM for radiation to the back due to metastatic disease Discharge Attestations Time Spent in Discharge Care*: greater than 30 min Specific Discharge Activities: Specific discharge activities: discussing with pcp/other providers Quality Metrics Clinical Quality Measures During this hospital stay, did patient experience: None Coding Level of Care Code Acute Health Systems Analyst for Stephanie Fwd Diagnoses Hypercalcemia of malignancy E83.52 Bone metastases C79.51 Stage IV squamous cell carcinoma of lung C34.91 Laterality: right
== END 2019-07-06 17:24 | disposition skilled nursing facility (03) | DRG 641 ==
LOC: ER 19:42 → MEDSURG 22:05
PROVIDERS: Family Medicine; Admitting Provider Family Medicine; Emergency Provider Emergency Medicine; Family Provider Family Medicine; PCP Family Medicine; Visit Provider Family Medicine
DX: E83.52 Hypercalcemia (principal); C34.91 Malignant neoplasm of unspecified part of right bronchus or lung; C79.51 Secondary malignant neoplasm of bone; Z87.891 Personal history of nicotine dependence
CPT/HCPCS: 12345; 36415; 36600; 70450; 71045; 80048; 80053; 80307; 81001; 82140; 82803; 83605; 83690; 83735; 84484; 85025; 85610; 87040; 87804; 93005; 96372; 99283; J0630; J1650; J2310; J3489; J7030

== ENCOUNTER 2019-07-11 10:55 | Outpatient (RCR) | payer MEDICARE, MEDICAID, SELFPAY ==
[2019-07-11 11:01] LABS: Basophils % 0.3 %; Hematocrit 37.8 % (42.0-52.0); Hemoglobin 12.6 g/dL (11.7-16.6); Lymphocytes # 1.4 10^3/uL (0.8-4.8); Lymphocytes % 12.5 %; Mean Corpuscular HGB Conc 33.3 g/dL (30.0-36.0); Mean Corpuscular Hemoglobin 31.4 pg (28.0-34.0); Mean Corpuscular Volume 94.3 fL (80-94); Mean Platelet Volume 10.4 fL (7.4-10.4); Monocytes # 1.3 10^3/uL (0.2-0.9); Monocytes % 11.3 %; Neutrophils # 8.4 10^3/uL (1.8-7.7); Neutrophils % 75.6 %; Nucleated Red Blood Cells % 0 %; Platelet Count 325 10^3/cmm (130-400); Red Blood Count 4.01 10^6/uL (4.1-5.3); Red Cell Distribution Width 16.8 % (12.1-15.1); White Blood Count 11.1 10^3/uL (4.0-10.0)
[2019-07-11 13:26] LABS: Anion Gap 26.3 (5-19); Blood Urea Nitrogen 14 mg/dL (6-20); Calcium 13.2 mg/Dl (8.6-10.0); Carbon Dioxide 17 mmol/L (22-29); Chloride 92 mmol/L (98-107); Glomerular Filtration Rate 221.7 mL/min (90-130); Glucose 76 mg/dL (74-109); Osmolality Calculated 267 mOsm/kg (285-295); Potassium 4.3 mmol/L (3.5-5.1); Sodium 131 mmol/L (136-145)
== END 2019-07-20 23:59 | disposition home or self-care (01) ==
LOC: LAB 10:55
PROVIDERS: Family Provider Family Medicine; PCP Family Medicine; Visit Provider Dermatology
DX: E83.52 Hypercalcemia (principal); C34.91 Malignant neoplasm of unspecified part of right bronchus or lung; C79.51 Secondary malignant neoplasm of bone
CPT/HCPCS: 80048; 85025

== ENCOUNTER 2019-07-12 08:56 | Outpatient (CLI) | payer OTHER, SELFPAY | END 2019-07-12 08:57 | disposition home or self-care (01) | LOC: ONCMED 08:56 | PROVIDERS: Family Provider Family Medicine; PCP Family Medicine; Visit Provider Radiology Radiation Oncology | DX: Z76.89 Persons encountering health services in other specified circumstances (principal) ==

== ENCOUNTER 2019-07-12 09:56 | Emergency (ER) | payer MEDICARE, MEDICAID, SELFPAY ==
[2019-07-12 10:00] VITALS: BMI 22.8
--- NOTE | 2019-07-12 10:00 | ED_ITS ---
Entered by Mariel Charles, acting as scribe for HPI - Altered Mental Status General: Chief Complaint: Altered Mental Status Stated Complaint: AMS Time Seen by Provider: 07/12/19 10:02 Source: EMS Mode of arrival: EMS Limitations: no limitations History of Present Illness: HPI narrative: 59 yo male presents with altered mental status. pt is unable to answer any questions when asked. pt was sent to the ED today by Oncology. unable to obtain any other symptoms due to pt mental status. MD complaint: altered mental status and decreased responsiveness Severity: moderate Consistency of symptoms: Getting Worse Treatments prior to arrival: other (pt was sent to the ED by Oncology) Review of Systems General: Reports: ROS unobtainable due to mental status Musc: Denies: joint warmth All/Imm: Denies: acute wheezing PFSH ED PFSH: Statuses (acute, chronic, etc) shown below reflect problem list status as previously entered and may not be historically accurate Social History Smoking and tobacco status: unknown if ever smoked Quit status (tobacco): has quit using tobacco Year quit tobacco: 2019 Alcohol intake: former Current gender identity: Male Physical Exam Narrative: EXAM NARRATIVE: Patient poorly responsive to verbal or painful stimuli. Could not even get him to open his eyes. At most he will moan. General: Cachectic unresponsive HEENT head is normocephalic oromucosa dry Cardiovascular: Regular rate and rhythm without appreciable murmur Chest decreased breath sounds expiratory wheeze and rhonchi throughout Extremities no edema cachectic generally no skin tears. Const: EXAM LIMITATIONS: altered mental status Course ED course: Called and talked to the family. He has stage IV lung cancer with multiple metastasis to different sites at this point he is not really candidate for any kind of treatment. In talking with him found they were making arrangements for hospice today. I recommended to them that the continue the hospital continue to set up the hospice return to the custodial with support eduarda comfort cares they conferred amongst her family and agreed patient was transferred back to the custodial under the auspices of hospice for comfort care Vital Signs: Vital signs: Vital Signs Pulse Rate 85 07/12/19 13:41 Respiratory Rate 20 H 07/12/19 13:41 Blood Pressure 116/71 07/12/19 13:41 Pulse Oximetry 94 07/12/19 13:41 MDM - Altered Mental Status Lab Data: Labs: Lab Results 07/12/19 07/12/19 07/12/19 Range/Units 10:53 11:25 11:25 WBC 11.7 H (4.0-10.0) 10^3/ uL RBC 4.10 (4.1-5.3) 10^6/u L Hgb 13.4 (11.7-16.6) g/dL Hct 40.8 L (42.0-52.0) % MCV 99.5 H (80-94) fL MCH 32.7 (28.0-34.0) pg MCHC 32.8 (30.0-36.0) g/dL RDW 17.1 H (12.1-15.1) % Plt Count 318 (130-400) 10^3/c mm MPV 9.8 (7.4-10.4) fL Neut % (Auto) 70.0 % Lymph % (Auto) 17.9 % [place] % (Auto) 11.2 % Eos % (Auto) 0.1 % Baso % (Auto) 0.3 % Neut # (Auto) 8.2 H (1.8-7.7) 10^3/u L Lymph # (Auto) 2.1 (0.8-4.8) 10^3/u L [place] # (Auto) 1.3 H (0.2-0.9) 10^3/u L Eos # (Auto) 0.0 (0.0-0.8) 10^3/u L Baso # (Auto) 0.0 (0.0-0.1) 10^3/u L Nucleated RBC % (a uto) 0 % Nucleated RBCs # 0.0 /100WBC Specimen Type Arterial Sample Site Brachial, right ABG pH 7.29 L (7.35-7.45) ABG pCO2 37.0 (35-45) mmHg ABG pO2 70.7 L (80.0-100.0) mmH g ABG HCO3 17.6 L (22-26) mmol/L ABG Base Excess -8.3 L (-2.0-2.0) mmol/ L Brandon Test N/a Hematocrit 42.5 (42-52) % Hgb O2 Saturation 93.0 L (95-100) % Carboxyhemoglobin 0.8 (0.4-20.1) %THgb Methemoglobin 0.5 (0.4-1.5) % Total Hemoglobin 13.9 L (14-18) g/dL O2 Delivery Device Room air [employer] Attorney ID [email or web address] Sodium 130 L (136-145) mmol/L Potassium 4.4 (3.5-5.1) mmol/L Chloride 91 L (98-107) mmol/L Carbon Dioxide 16 L (22-29) mmol/L Anion Gap 27.4 H (5-19) BUN 15 (6-20) mg/dL Creatinine 0.5 L (0.7-1.2) mg/dL GFR Calculation 171.4 H (90-130) mL/min Glucose 89 (74-109) mg/dL Lactate (0.5-2.2) mmol/L Calcium 13.7 H* (8.5-10.5) mg/dL Phosphorus 1.9 L (2.5-4.5) mg/dL Magnesium 1.6 L (1.7-2.3) mg/dL Total Bilirubin 1.3 H (0.15-1.2) mg/dL AST 77 H (0-40) U/L ALT 39 (0-41) U/L Alkaline Phosphata se 193 H (40-130) IU/L Creatine Kinase 94 (39-308) U/L Total Protein 7.9 (6.6-8.7) g/dL Albumin 3.6 (3.5-5.2) g/dL Globulin 4.3 (1.3-4.6) g/dL Lipase 15 (13-60) U/L Serum Ketones (Negative) 07/12/19 07/12/19 Range/Units 11:25 11:25 WBC (4.0-10.0) 10^3/ uL RBC (4.1-5.3) 10^6/u L Hgb (11.7-16.6) g/dL Hct (42.0-52.0) % MCV (80-94) fL MCH (28.0-34.0) pg MCHC (30.0-36.0) g/dL RDW (12.1-15.1) % Plt Count (130-400) 10^3/c mm MPV (7.4-10.4) fL Neut % (Auto) % Lymph % (Auto) % [place] % (Auto) % Eos % (Auto) % Baso % (Auto) % Neut # (Auto) (1.8-7.7) 10^3/u L Lymph # (Auto) (0.8-4.8) 10^3/u L [place] # (Auto) (0.2-0.9) 10^3/u L Eos # (Auto) (0.0-0.8) 10^3/u L Baso # (Auto) (0.0-0.1) 10^3/u L Nucleated RBC % (a uto) % Nucleated RBCs # /100WBC Specimen Type Sample Site ABG pH (7.35-7.45) ABG pCO2 (35-45) mmHg ABG pO2 (80.0-100.0) mmH g ABG HCO3 (22-26) mmol/L ABG Base Excess (-2.0-2.0) mmol/ L Brandon Test Hematocrit (42-52) % Hgb O2 Saturation (95-100) % Carboxyhemoglobin (0.4-20.1) %THgb Methemoglobin (0.4-1.5) % Total Hemoglobin (14-18) g/dL O2 Delivery Device [employer] Attorney ID Sodium (136-145) mmol/L Potassium (3.5-5.1) mmol/L Chloride (98-107) mmol/L Carbon Dioxide (22-29) mmol/L Anion Gap (5-19) BUN (6-20) mg/dL Creatinine (0.7-1.2) mg/dL GFR Calculation (90-130) mL/min Glucose (74-109) mg/dL Lactate 11.8 H* (0.5-2.2) mmol/L Calcium (8.5-10.5) mg/dL Phosphorus (2.5-4.5) mg/dL Magnesium (1.7-2.3) mg/dL Total Bilirubin (0.15-1.2) mg/dL AST (0-40) U/L ALT (0-41) U/L Alkaline Phosphata se (40-130) IU/L Creatine Kinase (39-308) U/L Total Protein (6.6-8.7) g/dL Albumin (3.5-5.2) g/dL Globulin (1.3-4.6) g/dL Lipase (13-60) U/L Serum Ketones Negative (Negative) Discharge Plan Discharge Patient Disposition: [facility] Clinical Impression: Squamous cell lung cancer, Stage IV squamous cell carcinoma of lung Condition: Serious Prescriptions: No Action lidocaine 5 % adhesive patch,medicated 1 patch TOPICAL DAILY 30 Days Qty: 30 RF: 0 sennosides-docusate sodium 8.6-50 mg Tablet 1 tab PO BID 30 Days Qty: 60 RF: 0 morphine 15 mg Tablet Extended Release 15 mg PO BID 30 Days Qty: 60 RF: 0 calcitonin (salmon) 200 unit/actuation spray,non-aerosol 1 spray intranasal (ALT) DAILY Qty: 3.7 RF: 0 Milk of Magnesia 400 mg/5 mL Suspension 30 ml PO DAILY PRN (Reason: Constipation) RF: 0 morphine 30 mg Tablet 30 mg PO Q4H PRN (Reason: pain) RF: 0 bisacodyl 10 mg Suppository 10 mg WA DAILY PRN (Reason: Constipation) RF: 0 Tamiflu 75 mg Capsule 75 mg PO DAILY RF: 0 Enema 19-7 gram/118 mL Enema 118 ml WA DAILY PRN (Reason: Constipation) RF: 0 Discharge Orders: Discharge Order (Routine); Ordered 07/12/19 Ordered By: Bruno Morris Referrals: Hannah Viramontes MD [Primary Care Provider] - Tressa Astorga DO [Family Provider] - Interventions: ED Discharge Assessment Last Done: 07/12/19 13:41 Discharge Date/Time: 07/12/19 13:46 Coding Level of Care Code ED Library Circulation Department Chief for Chg Fwd The documentation recorded by the Melvin lewis Bridget Annette, accurately reflects the service I personally performed and the decisions made by Alexandra maria Curtis L, DO Jul 12, 2019 09:56
--- NOTE | 2019-07-12 10:37 | CT_ITS ---
WS: [id number] CT HEAD NONCONTRAST HISTORY: AMS/ hx CA TECHNIQUE: Contiguous axial imaging performed through the brain in 2.5 mm imaging. Bone and soft tiss ue windows. Sagittal and coronal reformats reviewed. All CT scans at [facility] use at le ast one of these dose optimization techniques: automated exposure control; mA and/or kV adjustment pe r patient size (includes targeted exams where dose is matched to clinical indication); or iterative r econstruction. DLP: 1463.03 mGy.cm COMPARISON: 07/04/2019 No acute intracranial hemorrhage, midline shift or mass effect. Mild atrophy and mild chronic ischemic disease. Ventricles: Normal size with no hydrocephalus. No inferior displacement of the cerebellar vessels. Paranasal sinuses: As visualized are clear. Mastoid air cells: Well pneumatized. Calvarium and scalp: Numerous destructive osseous metastatic lesions throughout the skull. Similar to the prior examination with only mild progression. Bone defect RIGHT temporal bone. CT/CT head wo con* [id number] IMPRESSION: 1. No acute intracranial hemorrhage or edema. On this unenhanced study no intr acranial metastatic lesions appreciated. 2. 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
--- NOTE | 2019-07-12 10:37 | XRR_ITS ---
PROCEDURE INFORMATION: Exam: XR Chest, 1 View Exam date and time: 07/12/2019 10:50 AM Age: 59 years old Clinical indication: Dyspnea; Patient HX: Oncology PT TECHNIQUE: Imaging protocol: XR of the chest Views: 1 view. COMPARISON: CR XR chest 1V portable [id number] 07/04/2019 7:36 PM FINDINGS: Lungs: Subtle airspace disease left lung base/retrocardiac region. Pleural space: Unremarkable. No pleural effusion. No pneumothorax. Heart/Mediastinum: 1 soft tissue prominence right hilum as was previously described in certain for adenopathy. Right hilar mass noted on prior CT. Calcified lymph nodes left hilum Bones/joints: Unremarkable. XR/XR chest 1V portable [id number] IMPRESSION: 1. 1 soft tissue prominence right hilum as was previously described in certain for adenopathy. Right hilar mass noted on prior CT. 2. Subtle airspace disease left lung base/retrocardiac region.
[2019-07-12 11:06] LABS: ABG PH Result 7.29 (7.35-7.45); Arterial Blood Gas Hematocrit 42.5 % (42-52); Base Excess ABG -8.3 mmol/L (-2.0-2.0); Blood Gas Sample Site Brachial, right; Blood Gas Sample Type Arterial; Carboxyhemoglobin 0.8 %THgb (0.4-20.1); HCO3 ABG 17.6 mmol/L (22-26); Methemoglobin 0.5 % (0.4-1.5); Oxygen Device ROOM AIR; PO2 ABG 70.7 mmHg (80.0-100.0); Total Hemoglobin 13.9 g/dL (14-18)
[2019-07-12 11:35] LABS: Basophils % 0.3 %; Eosinophils % 0.1 %; Hematocrit 40.8 % (42.0-52.0); Hemoglobin 13.4 g/dL (11.7-16.6); Lymphocytes # 2.1 10^3/uL (0.8-4.8); Lymphocytes % 17.9 %; Mean Corpuscular HGB Conc 32.8 g/dL (30.0-36.0); Mean Corpuscular Hemoglobin 32.7 pg (28.0-34.0); Mean Corpuscular Volume 99.5 fL (80-94); Mean Platelet Volume 9.8 fL (7.4-10.4); Monocytes # 1.3 10^3/uL (0.2-0.9); Monocytes % 11.2 %; Neutrophils # 8.2 10^3/uL (1.8-7.7); Nucleated Red Blood Cells % 0 %; Platelet Count 318 10^3/cmm (130-400); Red Cell Distribution Width 17.1 % (12.1-15.1); White Blood Count 11.7 10^3/uL (4.0-10.0)
[2019-07-12] MEDS: sodium chloride 0.9% 500 ML IV (11:39)
[2019-07-12 11:49] LABS: Ketone (Acetest) Serum Negative (Negative)
[2019-07-12 12:00] LABS: Alanine Aminotransferase 39 U/L (0-41); Albumin Level 3.6 g/dL (3.5-5.2); Alkaline Phosphatase 193 IU/L (40-130); Anion Gap 27.4 (5-19); Aspartate Amino Transferase 77 U/L (0-40); Blood Urea Nitrogen 15 mg/dL (6-20); Carbon Dioxide 16 mmol/L (22-29); Chloride 91 mmol/L (98-107); Creatine Phosphokinase 94 U/L (39-308); Globulin 4.3 g/dL (1.3-4.6); Glomerular Filtration Rate 171.4 mL/min (90-130); Glucose 89 mg/dL (74-109); Lipase 15 U/L (13-60); Magnesium 1.6 mg/dL (1.7-2.3); Phosphorus 1.9 mg/dL (2.5-4.5); Potassium 4.4 mmol/L (3.5-5.1); Sodium 130 mmol/L (136-145); Total Bilirubin 1.3 mg/dL (0.15-1.2); Total Protein 7.9 g/dL (6.6-8.7)
[2019-07-12 12:02] VITALS: PULSE 84; RESP 13; O2SAT 100
[2019-07-12 12:06] LABS: Calcium 13.7 mg/dL (8.5-10.5); Lactate (Lactic Acid level) 11.8 mmol/L (0.5-2.2)
--- NOTE | 2019-07-12 12:54 | ECG_ITS ---
Measurements Intervals [place] Rate: 84 P: 5 WI: 163 QRS: 46 QRSD: 90 T: 56 QT: 360 QTc: 426 SINUS RHYTHM Compared to ECG 07/04/2019 21:56:23 Sinus tachycardia no longer present T-wave abnormality no longer present Electronically Signed On 07-12-2019 15:29:24 DRAMA DIRECTOR by Rohit Lopez M.D. [email or web address]
[2019-07-12 13:41] VITALS: BP 116/71; PULSE 85; RESP 20; O2SAT 94
== END 2019-07-12 13:46 | disposition skilled nursing facility (03) ==
PROVIDERS: Emergency Provider Family Medicine; Family Provider Family Medicine; PCP Family Medicine
DX: C34.90 Malignant neoplasm of unspecified part of unspecified bronchus or lung (principal); Z87.891 Personal history of nicotine dependence
CPT/HCPCS: 36415; 36600; 70450; 71045; 80053; 82009; 82550; 82805; 83605; 83690; 83735; 84100; 85025; 87040; 93005; 96360; 99281; J7040